=== PATIENT | male | born 1960 | race Caucasian/White ===

== ENCOUNTER 2016-04-05 07:10 | Emergency (ER) | payer MEDICARE ==
[~2016-04-05] VITALS: Ht 180.3 cm; Wt 81.6 kg
[~2016-04-05 07:10] MED LIST: RISP0.2519 PO
[2016-04-05 07:18] VITALS: BP 135/85
[2016-04-05] MEDS ORDERED: LIDOCAINE 2% TOPICAL JELLY 5GM TUBE. TP ONE (07:38)
--- NOTE | 2016-04-05 07:59 | PHYS DOC ---
Past Medical History Past Medical History: Arrhythmia, Bipolar Additional Past Medical Histor: ASPIRATION PNA AFTER SX, SCHIZO-AFFECTIVE DISORDER, FEEDING TUBE Past Surgical History: Pacemaker Additional Past Surgical Histo: G-tube placement, cervical surgery Additional Information: 1 PACK/DAY Alcohol Use: None Drug Use: None Adult General Chief Complaint Chief Complaint: GTUBE REPLACEMENT/MALFUNCTION HPI HPI Patient is a 55 year old male who presents for G-tube replacement after his tube fell out sometime during the night while he was sleeping. The tube was most recently replaced in this emergency department on 11/17/15. The patient had the gastrostomy due to aspiration pneumonia. He denies any abdominal pain. He has mild discomfort at the stoma site. He sees a PCP at [facility]. Review of Systems Review of Systems Constitutional: Denies fever or chills. [] GI: Denies abdominal pain, nausea, vomiting, bloody stools or diarrhea. [] : Denies dysuria, hematuria or urinary frequency. [] Integument: Denies rash or skin lesions. [] Current Medications Current Medications Current Medications Medications (Trade) Dose Ordered Sig/Christina Start Time Stop Time Status Last Admin Dose Admin Lidocaine HCl (Xylocaine 2% Topical 5gm Tube) 5 saima STK-MED ONCE 04/05/16 07:38 04/05/16 07:39 DC Allergies Allergies Allergies Coded Allergies Type Severity Reaction Last Updated Verified Sulfa (Sulfonamide Antibiotics) Allergy Intermediate 11/17/15 Yes Physical Exam Physical Exam Constitutional: Well developed, well nourished, no acute distress, non-toxic appearance. [] HENT: Normocephalic, atraumatic, oropharynx moist. [] Eyes: PERRLA, EOMI, conjunctiva normal, no discharge. [] Neck: Normal range of motion, no tenderness, supple, no stridor. [] Abdomen: Bowel sounds normal, soft, no tenderness, no masses, no pulsatile masses. G-tube stoma in the left upper quadrant with mild discomfort surrounding. Skin: Warm, dry, no erythema, no rash. There is no excoriation, erythema, or induration surrounding the G-tube site. Neurologic: Alert and oriented X 3, normal motor function, normal sensory function, no focal deficits noted. [] Psychologic: Affect normal, judgement normal, mood normal. [] Current Patient Data Vital Signs Vital Signs Date Time Temp Pulse Resp B/P Pulse Ox O2 Delivery O2 Flow Rate FiO2 04/05/16 07:18 98.6 90 18 135/85 96 Room Air 98.6 EKG EKG [] Radiology/Procedures Radiology/Procedures [] Course & Med Decision Making Course & Med Decision Making Pertinent Labs and Imaging studies reviewed. (See chart for details) [] Dragon Disclaimer Dragon Disclaimer This electronic medical record was generated, in whole or in part, using a voice recognition dictation system. Gastrostomy Tube Replacement Indication: previous tube fell out Procedure: The patient was placed in the supine position and the patient's gastric tube was replaced without difficulty. The tube was inserted using lidocaine jelly for local anesthesia. The balloon was inflated using 18cc NS. The placement was verified by aspiration of gastric contents without difficulty or discomfort in the patient. The patient tolerated the procedure well. Complications: none. Departure Departure Impression: Primary Impression: Dislodged gastrostomy tube Disposition: 01 HOME, SELF-CARE Condition: IMPROVED Referrals: NON,STAFF (PCP) Patient Instructions: Gastrostomy Tube, Adult Additional Instructions: Your G-tube was successfully replaced today. Please follow up with your doctor. Return to the emergency department if you have any difficulty with your tube or any new or concerning symptoms. JOLEEN KUMARI Apr 05, 2016 07:59
== END 2016-04-05 08:20 | disposition home or self-care (01) ==
LOC: ER 07:10
DX: Z43.1 Encounter for attention to gastrostomy (principal); F31.9 Bipolar disorder, unspecified; F25.9 Schizoaffective disorder, unspecified; F17.210 Nicotine dependence, cigarettes, uncomplicated; Z96.89 Presence of other specified functional implants; Z88.2 Allergy status to sulfonamides
CPT/HCPCS: 43760; 99284-25

== ENCOUNTER 2017-11-18 09:39 | Emergency (ER) | payer MEDICARE ==
[~2017-11-18] VITALS: Ht 180.3 cm; Wt 102.1 kg
[2017-11-18 10:24] VITALS: BP 147/94
--- NOTE | 2017-11-18 10:40 | PHYS DOC ---
Past Medical History Past Medical History: Arrhythmia, Bipolar Additional Past Medical Histor: ASPIRATION PNA AFTER SX, SCHIZO-AFFECTIVE DISORDER, FEEDING TUBE Past Surgical History: Pacemaker Additional Past Surgical Histo: G-tube placement, cervical surgery Alcohol Use: None Drug Use: None Adult General Chief Complaint Chief Complaint: ELBOW PROBLEM HPI HPI 57-year-old male presents with a swollen red elbow. He states it's just started swelling over the last 24 hours. He denies any injury to the elbow. He denies any other joint pain. He states he's never had bursitis in the past. He can move his arm with minimal pain.[] Review of Systems Review of Systems Constitutional: Denies fever or chills [] Eyes: Denies change in visual acuity, redness, or eye pain [] HENT: Denies nasal congestion or sore throat [] Respiratory: Denies cough or shortness of breath [] Cardiovascular: No additional information not addressed in HPI [] GI: Denies abdominal pain, nausea, vomiting, bloody stools or diarrhea [] : Denies dysuria or hematuria [] Musculoskeletal: Per history of present illness[] Integument: Denies rash or skin lesions [] Neurologic: Denies headache, focal weakness or sensory changes [] Endocrine: Denies polyuria or polydipsia [] All other systems were reviewed and found to be within normal limits, except as documented in this note. Allergies Allergies Allergies Coded Allergies Type Severity Reaction Last Updated Verified Sulfa (Sulfonamide Antibiotics) Allergy Intermediate 11/17/15 Yes Physical Exam Physical Exam Constitutional: Well developed, well nourished, no acute distress, non-toxic appearance. [] HENT: Normocephalic, atraumatic, bilateral external ears normal, oropharynx moist, no oral exudates, nose normal. [] Eyes: PERRLA, EOMI, conjunctiva normal, no discharge. [] Neck: Normal range of motion, no tenderness, supple, no stridor. [] Cardiovascular:Heart rate regular rhythm, no murmur [] Lungs & Thorax: Bilateral breath sounds clear to auscultation [] Abdomen: Bowel sounds normal, soft, no tenderness, no masses, no pulsatile masses. [] Skin: Warm, dry, no erythema, no rash. [] Back: No tenderness, no CVA tenderness. [] Extremities: The right BURSA IS SWOLLEN WITH OVERLYING ERYTHEMA. [] Neurologic: Alert and oriented X 3, normal motor function, normal sensory function, no focal deficits noted. [] Psychologic: Affect normal, judgement normal, mood normal. [] Current Patient Data Vital Signs Vital Signs Date Time Temp Pulse Resp B/P (MAP) Pulse Ox O2 Delivery O2 Flow Rate FiO2 11/18/17 10:24 98.6 87 20 147/94 (111) 99 Room Air 98.6 EKG EKG [] Radiology/Procedures Radiology/Procedures [] Course & Med Decision Making Course & Med Decision Making Pertinent Labs and Imaging studies reviewed. (See chart for details) [] Dragon Disclaimer Dragon Disclaimer This electronic medical record was generated, in whole or in part, using a voice recognition dictation system. Departure Departure Impression: Primary Impression: Olecranon bursitis, right elbow Disposition: 01 HOME, SELF-CARE Condition: STABLE Referrals: UNKNOWN PCP NAME (PCP) Patient Instructions: Olecranon Bursitis Scripts Naproxen (NAPROXEN) 500 Mg Tablet 1 TAB PO BID PRN for PAIN, #30 TAB 1 Refill Prov: MARTINA STYLES DO 11/18/17 Clindamycin Hcl (CLINDAMYCIN HCL) 300 Mg Capsule 1 CAP PO TID for Infection, #30 CAP Prov: MARTINA STYLES DO 11/18/17 MARTINA STYLES DO Nov 18, 2017 10:40
[2017-11-18] MEDS ORDERED: NAPR-514 PO (10:45)
[2017-11-18] MEDS ORDERED: CLIN300C8 PO (10:45)
== END 2017-11-18 10:48 | disposition home or self-care (01) ==
LOC: ER 09:39
DX: M70.21 Olecranon bursitis, right elbow (principal); F31.9 Bipolar disorder, unspecified; Z95.0 Presence of cardiac pacemaker; F25.9 Schizoaffective disorder, unspecified; Z88.2 Allergy status to sulfonamides
CPT/HCPCS: 99283

== ENCOUNTER 2019-01-10 17:32 | Inpatient (IN) | payer MEDICARE ==
[~2019-01-10] VITALS: Ht 177.8 cm; Wt 86.8 kg
[~2019-01-10 17:32] MED LIST changes: +CLIN300C8 PO; +NAPR-514 PO
--- NOTE | 2019-01-10 18:24 | PHYS DOC ---
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 Patient was seen at rehabilitation placement today and complaining of right leg pain and problems with his walking. Patient had weakness of all extremities and slurred speech and was not able to tell for how long he had speech problem. Code stroke was activated at arrival of the patient to ER. Review of Systems Review of Systems Constitutional: Denies fever or chills [] Eyes: Denies change in visual acuity, redness, or eye pain [] HENT: Denies nasal congestion or sore throat [] Respiratory: Denies cough or shortness of breath [] Cardiovascular: No additional information not addressed in HPI [] GI: Denies abdominal pain, nausea, vomiting, bloody stools or diarrhea [] : Denies dysuria or hematuria [] Musculoskeletal: Denies back pain , reports joint pain [] Integument: Denies rash or skin lesions [] Neurologic: Denies headache, focal weakness or sensory changes [] Endocrine: Denies polyuria or polydipsia [] All other systems were reviewed and found to be within normal limits, except as documented in this note. Current Medications Current Medications Current Medications Medications (Trade) Dose Ordered Sig/Christina Start Time Stop Time Status Last Admin Dose Admin Fentanyl Citrate (Fentanyl 2ml Vial) 50 mcg 1X ONCE 01/10/19 20:00 01/10/19 20:01 DC 01/10/19 20:11 50 MCG Info (CONTRAST GIVEN -- Rx MONITORING) 1 each PRN DAILY PRN 01/10/19 20:00 01/12/19 19:59 Iohexol (Omnipaque 350 Mg/ml) 75 ml 1X ONCE 01/10/19 20:00 01/10/19 20:01 DC 01/10/19 20:11 75 ML Allergies Allergies Allergies Coded Allergies Type Severity Reaction Last Updated Verified Sulfa (Sulfonamide Antibiotics) Allergy Intermediate 11/17/15 Yes haloperidol Allergy Intermediate Unknown 01/10/19 Yes Physical Exam Physical Exam Constitutional: Well nourished, mild distress, non-toxic appearance. [] HENT: Normocephalic, atraumatic, bilateral external ears normal, oropharynx moist, no oral exudates, nose normal. [] Eyes: PERRLA, EOMI, conjunctiva normal, no discharge. [] Neck: Normal range of motion, no tenderness, supple, no stridor. [] Cardiovascular:Heart rate regular rhythm, no murmur [] Lungs & Thorax: Bilateral breath sounds clear to auscultation [] Abdomen: Bowel sounds normal, soft, no tenderness, no masses, no pulsatile masses. [] Skin: Warm, dry, no erythema, no rash. [] Back: No tenderness, no CVA tenderness. [] Extremities: No tenderness, no cyanosis, no clubbing, ROM intact, no edema. [] Neurologic: Alert and oriented X 2, normal motor function, normal sensory function, no focal deficits noted, NIHS of 4. [] Psychologic: Affect anxious, judgement normal, mood normal. [] Current Patient Data Vital Signs Vital Signs Date Time Temp Pulse Resp B/P (MAP) Pulse Ox O2 Delivery O2 Flow Rate FiO2 01/10/19 20:08 65 16 97 01/10/19 17:38 98.4 149/92 (111) Room Air 98.4 Lab Values Laboratory Tests Test 01/10/19 18:05 01/10/19 18:08 01/10/19 18:39 White Blood Count 8.6 x10^3/uL (4.0-11.0) Red Blood Count 4.46 x10^6/uL (4.30-5.70) Hemoglobin 15.5 g/dL (13.0-17.5) Hematocrit 44.5 % (39.0-53.0) Mean Corpuscular Volume 100 fL (79-100) Mean Corpuscular Hemoglobin 35 pg (25-35) Mean Corpuscular Hemoglobin Concent 35 g/dL (31-37) Red Cell Distribution Width 14.7 % (11.5-14.5) H Platelet Count 253 x10^3/uL (140-400) Neutrophils (%) (Auto) 76 % (31-73) H Lymphocytes (%) (Auto) 16 % (24-48) L Monocytes (%) (Auto) 7 % (0-9) Eosinophils (%) (Auto) 1 % (0-3) Basophils (%) (Auto) 0 % (0-3) Neutrophils # (Auto) 6.6 x10^3/uL (1.8-7.7) Lymphocytes # (Auto) 1.4 x10^3/uL (1.0-4.8) Monocytes # (Auto) 0.6 x10^3/uL (0.0-1.1) Eosinophils # (Auto) 0.0 x10^3/uL (0.0-0.7) Basophils # (Auto) 0.0 x10^3/uL (0.0-0.2) Prothrombin Time 12.4 SEC (11.7-14.0) Prothrombin Time INR 1.0 (0.8-1.1) Activated Partial Thromboplast Time 29 SEC (24-38) Sodium Level 142 mmol/L (136-145) Potassium Level 4.1 mmol/L (3.5-5.1) Chloride Level 102 mmol/L (98-107) Carbon Dioxide Level 31 mmol/L (21-32) Anion Gap 9 (6-14) Blood Urea Nitrogen 12 mg/dL (8-26) Creatinine 1.1 mg/dL (0.7-1.3) Estimated GFR (Cockcroft-Gault) 68.3 BUN/Creatinine Ratio 11 (6-20) Glucose Level 95 mg/dL (70-99) Lactic Acid Level 1.9 mmol/L (0.4-2.0) Calcium Level 8.6 mg/dL (8.5-10.1) Total Bilirubin 0.3 mg/dL (0.2-1.0) Aspartate Amino Transferase (AST) 16 U/L (15-37) Alanine Aminotransferase (ALT) 13 U/L (16-63) L Alkaline Phosphatase 99 U/L (46-116) Creatine Kinase 78 U/L (39-308) Troponin I Quantitative < 0.017 ng/mL (0.000-0.055) Total Protein 7.7 g/dL (6.4-8.2) Albumin 3.4 g/dL (3.4-5.0) Albumin/Globulin Ratio 0.8 (1.0-1.7) L Glucose (Fingerstick) 96 mg/dL (70-99) Urine Color Yellow Urine Clarity Clear Urine pH 7.5 Urine Specific [place] 1.010 Urine Protein Negative mg/dL (NEG-TRACE) Urine Glucose (UA) Negative mg/dL (NEG) Urine Ketones (Stick) Negative mg/dL (NEG) Urine Blood Negative (NEG) Urine Nitrite Negative (NEG) Urine Bilirubin Negative (NEG) Urine Urobilinogen Dipstick 1.0 mg/dL (0.2 mg/dL) Urine Leukocyte Esterase Negative (NEG) Urine RBC 0 /HPF (0-2) Urine WBC Occ /HPF (0-4) Urine Squamous Epithelial Cells Occ /LPF Urine Bacteria 0 /HPF (0-FEW) Urine Opiates Screen Neg (NEG) Urine Methadone Screen Neg (NEG) Urine Barbiturates Neg (NEG) Urine Phencyclidine Screen Neg (NEG) Urine Amphetamine/Methamphetamine Neg (NEG) Urine Benzodiazepines Screen Neg (NEG) Urine Cocaine Screen Neg (NEG) Urine Cannabinoids Screen Neg (NEG) Urine Ethyl Alcohol Neg (NEG) Laboratory Tests 01/10/19 18:05 Laboratory Tests 01/10/19 18:05 EKG EKG EKG interpreted by me. EKG at 1850 showed normal sinus rhythm at rate of 61, left fourth axis, normal [place] and QT intervals, no acute ST and T-wave elevation. Radiology/Procedures Radiology/Procedures [facility] [address] [place] [address] [id number] [place] [address] IMAGING REPORT Signed PATIENT: BHAVANA CRISOSTOMO AACCOUNT: [id number] : 1960 LOCATION: ER AGE: 58 SEX: M EXAM STATUS: PRE ER ORD. PHYSICIAN: AIMEE JACKSON MD REASON: SLURRED SPEECH, DECREASED MOTOR TODAY. PROCEDURE: CT CODE STROKE HEAD WO Examination: CT CODE STROKE HEAD WO History: Slurred speech, decreased motor activity Comparison/Correlation: None Findings: Axial images of the head were obtained without contrast. Mild atrophy is present. No intracranial hemorrhage, midline shift, or mass effect. Left external capsular lacunar infarct of indeterminate age is noted. No evidence of evolving infarct. Opacification of the right external auditory canal is noted. Impression: No intracranial hemorrhage. No conclusive finding of evolving infarct. Discussed with the referring emergency room physician on 01/10/2019 at 6:25 PM. RS Compliance Statement: One or more of the following individualized dose reduction techniques were utilized for this examination: 1. Automated exposure control 2. Adjustment of the mA and/or kV according to patient size 3. Use of iterative reconstruction technique Electronically signed by: Mando Bauer MD (01/10/2019 6:26 PM) [facility] DICTATED and SIGNED BY: MANDO BAUER MD DATE: 01/10/191825 IMAGING REPORT Signed PATIENT: BHAVANA CRISOSTOMO AACCOUNT: [id number] : 1960 LOCATION: [address] [place] [address] AGE: 58 SEX: M EXAM STATUS: ADM IN ORD. PHYSICIAN: AIMEE JACKSON MD REASON: weakness PROCEDURE: PORTABLE CHEST 1V Single view chest dated 01/10/2019. No comparison available. Clinical data indication: Weakness. FINDINGS: Single upright portable exam performed. Heart and mediastinal contours within normal limits. Dual lead left subclavian pacer in place. Lungs are somewhat hyperinflated but otherwise clear. No consolidation or pleural effusion. No pneumothorax. Patchy and linear opacities at both lung bases, likely scar or atelectasis. IMPRESSION: 1. No acute abnormality of chest. 2. Patchy and linear opacities at both lung bases, likely scar or atelectasis. Electronically signed by: Jayme Skinner MD (01/10/2019 8:49 PM) [facility] DICTATED and SIGNED BY: JAYME SKINNER MD DATE: 01/10/192048 [][facility] [address] [place], [place] [id number] IMAGING REPORT Signed PATIENT: BHAVANA CRISOSTOMO AACCOUNT: [id number] : 1960 LOCATION: [address] [place] [address] AGE: 58 SEX: M EXAM STATUS: ADM IN ORD. PHYSICIAN: AIMEE JACKSON MD REASON: slurred speech PROCEDURE: CT ANGIOGRAPHY HEAD AND NECK CTA head and neck with contrast dated 01/10/2019. No comparison available. CLINICAL INDICATION: Slurred speech. Possible stroke. TECHNIQUE: Per contiguous axial imaging of the head and neck performed following the intravenous administration of 75 cc Omnipaque 350. Study was performed as dedicated CTA with thin cut coronal and sagittal reconstructions and curved reformatted reconstructions. One or more of the following individualized dose reduction techniques were utilized for this examination: 1. Automated exposure control 2. Adjustment of the mA and/or kV according to patient size 3. Use of iterative reconstruction technique. Carotid Stenosis calculations for CT, MR, and conventional angiography are based upon measurements of the distal ICA diameter in accordance with the NASCET methodology. Stenosis calculations for carotid ultrasound studies are derived from validated velocity criteria which are known to correlate with the NASCET methodology. FINDINGS: Contrast bolus is adequate. Aortic arch is normal in caliber. There is bovine origin of the left common carotid. The bilateral subclavian arteries are patent. Right vertebral artery origin is patent. The left vertebral artery origin is not well visualized due to beam hardening artifact from dense contrast material in the adjacent vein. The mid to distal vertebral arteries are patent to the skull base. No intimal flap or focal stenosis. Intradural vertebral arteries are patent. Basilar artery is well formed. Bilateral [employer] are patent. Left common carotid artery origin is not well evaluated due to beam Rojas artifact from dense contrast material in the adjacent vein. There is calcific plaque at the left carotid bifurcation resulting in minimal luminal narrowing of the proximal left ICA. The left ICA is otherwise patent to the skull base. The right common carotid artery origin is also limited in evaluation. The CCA is otherwise patent. There is minimal calcific plaque at the right carotid bifurcation resulting in no significant ICA stenosis. The right ICA is otherwise patent to the skull base. There is mild calcific plaque at the bilateral cavernous internal carotid arteries, without significant stenosis. The MORTEZA and MCA branches are symmetric. Patent anterior communicating artery. There is no apparent proximal branch vessel occlusion. No evidence for aneurysm. Postcontrast imaging of the brain shows no abnormal enhancement. The dural venous sinuses are grossly patent. Paranasal sinuses and mastoid air cells are clear. No significant soft tissue abnormality. Images of lung apices show mild to moderate emphysema and biapical scarring. IMPRESSION: 1. No evidence of hemodynamically significant stenosis or aneurysm. 2. Limited evaluation of the origin of the bilateral common carotid artery and left vertebral artery due to artifact. 3. Mild calcific plaquing of the bilateral carotid bifurcation and bilateral cavernous ICA with no evidence of hemodynamically significant stenosis. Electronically signed by: Jayme Skinner MD (01/10/2019 8:48 PM) [facility] DICTATED and SIGNED BY: JAYME SKINNER MD DATE: 01/10/192047 Course & Med Decision Making Course & Med Decision Making Pertinent Labs and Imaging studies reviewed. (See chart for details) Evaluation of patient in ER showed 74-year-old male patient presented with generalized weakness. Code stroke castrated Tylenol level patient because of assisted to speech but patient was not a candidate for TPA because of chronic slurred speech reported by his family member and no focal neuro deficit.Patient requiring admission for further evaluation and treatment. Discussed with Dr. Live who is in agreement with admission. Discussed findings and plan with patient and family, who acknowledge understanding and agreement. Dragon Disclaimer Dragon Disclaimer This electronic medical record was generated, in whole or in part, using a voice recognition dictation system. Departure Departure Impression: Primary Impression: Neurological deficit present Disposition: 09 ADMITTED INPATIENT (at 2136) Condition: IMPROVED Referrals: UNKNOWN PCP NAME (PCP) NIHSS Stroke Scale NIH Stroke Scale: NIH Stroke Scale Response (Comments) Value Level of Consciousness: 0 Alert/Responsive 0 LOC Questions: 0 Answers both correctly 0 LOC Commands: 0 Performs both tasks 0 Best Gaze: 0 Normal 0 Visual: 0 No visual loss 0 Facial Palsy: 0 Normal, symmetrical 0 Motor - Left Arm 0 No drift 0 Motor - Right Arm 0 No drift 0 Motor - Left Leg 0 No drift 0 Motor: Right Leg 0 No drift 0 Limb Ataxia: 2 Two limbs 2 Sensory: 0 No loss 0 Best Language: 1 Mild to mod aphasia 1 Dysathria: 1 Mild to moderate 1 Extinction and Inattention: 0 Normal 0 Total 4 Critical Care Time Critical care time was 65 minutes exclusive of procedures. AIMEE JACKSON MD Jan 10, 2019 18:24
--- NOTE | 2019-01-10 18:28 | RAD ---
Examination: CT CODE STROKE HEAD WO History: Slurred speech, decreased motor activity Comparison/Correlation: None Findings: Axial images of the head were obtained without contrast. Mild atrophy is present. No intracranial hemorrhage, midline shift, or mass effect. Left external capsular lacunar infarct of indeterminate age is noted. No evidence of evolving infarct. Opacification of the right external auditory canal is noted. Impression: No intracranial hemorrhage. No conclusive finding of evolving infarct. Discussed with the referring emergency room physician on 01/10/2019 at 6:25 PM. PQRS Compliance Statement: One or more of the following individualized dose reduction techniques were utilized for this examination: 1. Automated exposure control 2. Adjustment of the mA and/or kV according to patient size 3. Use of iterative reconstruction technique Electronically signed by: Mando Goff MD (01/10/2019 6:26 PM) [facility]
[2019-01-10 18:33] LABS: BASO % 0 % (0-3); EOS % 1 % (0-3); HEMATOCRIT 44.5 % (39.0-53.0); HEMOGLOBIN 15.5 g/dL (13.0-17.5); LYMPH # 1.4 x10^3/uL (1.0-4.8); LYMPH % 16 % (24-48); MEAN CORPUSCULAR HEMOGLOBIN 35 pg (25-35); MEAN CORPUSCULAR HGB CONC 35 g/dL (31-37); MEAN CORPUSCULAR VOLUME 100 fL (79-100); MONO # 0.6 x10^3/uL (0.0-1.1); MONO % 7 % (0-9); NEUT # 6.6 x10^3/uL (1.8-7.7); NEUT % 76 % (31-73); PLATELET COUNT 253 x10^3/uL (140-400); RED BLOOD COUNT 4.46 x10^6/uL (4.30-5.70); RED CELL DISTRIBUTION WIDTH 14.7 % (11.5-14.5); WHITE BLOOD COUNT 8.6 x10^3/uL (4.0-11.0)
[2019-01-10 18:41] LABS: CALCIUM 8.6 mg/dL (8.5-10.1); CREATININE 1.1 mg/dL (0.7-1.3); GFR 68.3; POTASSIUM 4.1 mmol/L (3.5-5.1)
[2019-01-10 18:47] LABS: ALBUMIN 3.4 g/dL (3.4-5.0); ALBUMIN/GLOBULIN RATIO 0.8 (1.0-1.7); PROTHROMBIN TIME PATIENT 12.4 SEC (11.7-14.0); TOTAL BILIRUBIN 0.3 mg/dL (0.2-1.0); TOTAL PROTEIN 7.7 g/dL (6.4-8.2)
[2019-01-10 18:49] LABS: BILIRUBIN,URINE NEGATIVE (NEG); CLARITY,URINE CLEAR; COLOR,URINE YELLOW; NITRITE,URINE NEGATIVE (NEG); PH,URINE 7.5; PROTEIN,URINE NEGATIVE (NEG-TRACE)
[2019-01-10 18:57] LABS: BACTERIA,URINE 0 /HPF (0-FEW); RBC,URINE 0 /HPF (0-2); SQUAMOUS EPITHELIAL CELL,UR OCC /LPF; WBC,URINE OCC /HPF (0-4)
[2019-01-10 19:07] LABS: BARBITURATES NEG (NEG); BENZODIAZEPINES NEG (NEG); CANNABINOIDS NEG (NEG); COCAINE NEG (NEG); METHADONE NEG (NEG); OPIATES NEG (NEG); PHENCYCLIDINE NEG (NEG)
[2019-01-10 19:08] LABS: AMPHETAMINE/METHAMPHETAMINE NEG (NEG)
[2019-01-10] MEDS ORDERED: fentaNYL PF VIAL 100 MCG/2 ML VIAL IVP ONE (20:00)
[2019-01-10] MEDS ORDERED: IOHEXOL 350 MG/ML 100 ML VIAL. IV ONE (20:00)
[2019-01-10] MEDS ORDERED: CONTRAST GIVEN. MC PRN (20:00)
--- NOTE | 2019-01-10 20:51 | RAD ---
CTA head and neck with contrast dated 01/10/2019. No comparison available. CLINICAL INDICATION: Slurred speech. Possible stroke. TECHNIQUE: Per contiguous axial imaging of the head and neck performed following the intravenous administration of 75 cc Omnipaque 350. Study was performed as dedicated CTA with thin cut coronal and sagittal reconstructions and curved reformatted reconstructions. One or more of the following individualized dose reduction techniques were utilized for this examination: 1. Automated exposure control 2. Adjustment of the mA and/or kV according to patient size 3. Use of iterative reconstruction technique. Carotid Stenosis calculations for CT, MR, and conventional angiography are based upon measurements of the distal ICA diameter in accordance with the NASCET methodology. Stenosis calculations for carotid ultrasound studies are derived from validated velocity criteria which are known to correlate with the NASCET methodology. FINDINGS: Contrast bolus is adequate. Aortic arch is normal in caliber. There is bovine origin of the left common carotid. The bilateral subclavian arteries are patent. Right vertebral artery origin is patent. The left vertebral artery origin is not well visualized due to beam hardening artifact from dense contrast material in the adjacent vein. The mid to distal vertebral arteries are patent to the skull base. No intimal flap or focal stenosis. Intradural vertebral arteries are patent. Basilar artery is well formed. Bilateral FASHION MODEL are patent. Left common carotid artery origin is not well evaluated due to beam Rojas artifact from dense contrast material in the adjacent vein. There is calcific plaque at the left carotid bifurcation resulting in minimal luminal narrowing of the proximal left ICA. The left ICA is otherwise patent to the skull base. The right common carotid artery origin is also limited in evaluation. The CCA is otherwise patent. There is minimal calcific plaque at the right carotid bifurcation resulting in no significant ICA stenosis. The right ICA is otherwise patent to the skull base. There is mild calcific plaque at the bilateral cavernous internal carotid arteries, without significant stenosis. The MORTEZA and MCA branches are symmetric. Patent anterior communicating artery. There is no apparent proximal branch vessel occlusion. No evidence for aneurysm. Postcontrast imaging of the brain shows no abnormal enhancement. The dural venous sinuses are grossly patent. Paranasal sinuses and mastoid air cells are clear. No significant soft tissue abnormality. Images of lung apices show mild to moderate emphysema and biapical scarring. IMPRESSION: 1. No evidence of hemodynamically significant stenosis or aneurysm. 2. Limited evaluation of the origin of the bilateral common carotid artery and left vertebral artery due to artifact. 3. Mild calcific plaquing of the bilateral carotid bifurcation and bilateral cavernous ICA with no evidence of hemodynamically significant stenosis. Electronically signed by: Jayme Skinner MD (01/10/2019 8:48 PM) [facility]
--- NOTE | 2019-01-10 20:52 | RAD ---
Single view chest dated 01/10/2019. No comparison available. Clinical data indication: Weakness. FINDINGS: Single upright portable exam performed. Heart and mediastinal contours within normal limits. Dual lead left subclavian pacer in place. Lungs are somewhat hyperinflated but otherwise clear. No consolidation or pleural effusion. No pneumothorax. Patchy and linear opacities at both lung bases, likely scar or atelectasis. IMPRESSION: 1. No acute abnormality of chest. 2. Patchy and linear opacities at both lung bases, likely scar or atelectasis. Electronically signed by: Jayme Skinner MD (01/10/2019 8:49 PM) [facility]
[2019-01-10 21:40] VITALS: BP 160/89
[2019-01-10] MEDS ORDERED: DULO60CA6 PEG (22:19)
[2019-01-10] MEDS ORDERED: LAMO200T6 PEG (22:19)
[2019-01-10] MEDS ORDERED: ASEN10TA9 SL (22:19)
[2019-01-10] MEDS ORDERED: PANT40GR PEG (22:19)
[2019-01-10] MEDS ORDERED: BENZ1TAB5 PEG (23:07)
[2019-01-10] MEDS ORDERED: GABA600T7 PEG (23:07)
[2019-01-10 23:10] VITALS: BP 151/93
[2019-01-10] MEDS: oxyCODONE/APAP 5/325 1 TAB TABLET PEG PRN (23:23)
--- NOTE | 2019-01-11 01:22 | NUR ---
Patient arrived from ER at 2130 by bed. NIH done with Yuriy RN at bedside and patient scored a 15 and notified Calos of the results and continue to monitor. Medications verified with Dr. Live and restarted. Patient had a G-tube that was placed recently at and 20g and used a Enternal funnel Enfit for medication administration. Patient takes bolus Iso source 1.5 florence QID. Nutrition consult ordered.
[2019-01-11 03:00] VITALS: BP 132/76
[2019-01-11] MEDS: oxyCODONE/APAP 5/325 1 TAB TABLET PEG PRN ×2 (03:15→07:55)
[2019-01-11 04:45] LABS: BASO % 0 % (0-3); EOS # 0.1 x10^3/uL (0.0-0.7); EOS % 2 % (0-3); HEMATOCRIT 42.5 % (39.0-53.0); HEMOGLOBIN 14.8 g/dL (13.0-17.5); LYMPH # 2.7 x10^3/uL (1.0-4.8); LYMPH % 35 % (24-48); MEAN CORPUSCULAR HEMOGLOBIN 35 pg (25-35); MEAN CORPUSCULAR HGB CONC 35 g/dL (31-37); MEAN CORPUSCULAR VOLUME 100 fL (79-100); MONO # 0.6 x10^3/uL (0.0-1.1); MONO % 8 % (0-9); NEUT # 4.3 x10^3/uL (1.8-7.7); NEUT % 55 % (31-73); PLATELET COUNT 236 x10^3/uL (140-400); RED BLOOD COUNT 4.26 x10^6/uL (4.30-5.70); RED CELL DISTRIBUTION WIDTH 14.5 % (11.5-14.5); WHITE BLOOD COUNT 7.7 x10^3/uL (4.0-11.0)
[2019-01-11 04:58] LABS: CALCIUM 8.5 mg/dL (8.5-10.1); CREATININE 0.9 mg/dL (0.7-1.3); GFR 86.1; POTASSIUM 3.7 mmol/L (3.5-5.1)
[2019-01-11 07:00] VITALS: BP 133/79
--- NOTE | 2019-01-11 07:27 | EKG ---
[facility] [address] [place] [address] Test Date: 2019-01-10 Test Time: 18:50:28 Pat Name: BHAVANA CRISOSTOMO Department: Room: Gender: M Museum Docent: : 1960 Requested By: AIMEE JACKSON Order Number: [id number] Reading MD: Measurements Intervals [place] Rate: 60 P: 40 SD: 150 QRS: -23 QRSD: 82 T: 38 QT: 408 QTc: 412 Interpretive Statements SINUS RHYTHM LEFTWARD AXIS QRS(T) CONTOUR ABNORMALITY CONSISTENT WITH ANTEROSEPTAL INFARCT PROBABLY OLD ABNORMAL ECG No previous ECG available for comparison
[2019-01-11] MEDS ORDERED: PANTOPRAZOLE 40 MG TABLET.DR. PO SCH (07:30)
[2019-01-11] MEDS ORDERED: lamoTRIgine 100 MG TABLET. PEG SCH (09:00)
[2019-01-11] MEDS ORDERED: DULoxetine HCL 30 MG CAPSULE.DR PO SCH (09:00)
[2019-01-11 11:00] VITALS: BP 121/71
--- NOTE | 2019-01-11 13:07 | NUR ---
SS following for discharge planning. SS reviewed pt chart. Pt is from home and is currently on room air. No discharge needs noted at this time. SS will continue to follow for discharge planning.
--- NOTE | 2019-01-11 13:36 | PDOC2 ---
NEUROLOGY CONSULT Date of Admission Date of Admission DATE: 01/11/19 TIME: 13:20 Reason for Consult Reason for Consult: IMPRESSION: Generalized weakness on 01/10/19, resolved. HTN. Smoking. Bipolar disorder. RECOMMENDATIONS/PLAN: CT and CTA performed. ASA 325 mg daily. Smoking cessation. FU with PCP. HISTORY OF THE PRESENT ILLNESS: This is a 58-year-old male patient with history of bipolar disorder and epiglottis injury during cervical discotomy with PEG tube placement who was brought by EMS to the ER of [facility] with complaints of generalized weakness, LE > UE on 01/10/19. Patient was seen at rehabilitation placement today and complaining of right leg pain and problems with his walking, then stated to have weakness of all extremities and slurred speech and was not able to tell for how long he had speech problem. Code stroke was activated at arrival of the patient to ER. His HCT and CTA were no acute abnormalities. His speech problem and weakness resolved. PAST MEDICAL HISTORY: Arrhythmia, Bipolar, ASPIRATION PNA AFTER SX, SCHIZO-AFFECTIVE DISORDER, FEEDING TUBE PAST SURGERY HISTORY: Pacemaker Placement G-tube placement, cervical spine surgery. Allergies Coded Allergies Type Severity Reaction Last Updated Verified Sulfa (Sulfonamide Antibiotics) Allergy Intermediate 11/17/15 Yes haloperidol Allergy Intermediate Unknown 01/10/19 Yes MEDICATIONS: Refer to [facility] FAMILY HISTORY: Non contributory. SOCIAL HISTORY: Lives with friend. Denies illicit drug use. He smokes 1 pack of cigarettes a day for about 50 years. He drinks alcohol occasionally. REVIEW OF SYSTEMS: Constitutional: No malnutrition, cachexia. Head: No recent traumatic brain or head injury. Skin: No edema, or rash. Ear: No infection. Eyes: No vision loss or color blindness. Nose: No bleeding or purulent discharges. Hearing: No hearing decrease. Neck: No injury. Cardiac: HTN. Pulmonary: Longstanding smoking.. GI: epiglottis.. Urinary/genital: No dysuria, incontinence, urinary retention. Endocrinologic: No cousin face, craniofacial dysmorphism, polydactyly. Skeletomuscular: NGeneralized weakness. Neurological: see HP. Psychiatric: Denies drug use/abuse. Otherwise, not [id number] review of systems. PHYSICAL EXAMINATION: General appearance is in no acute distress. HEENT: Normocephalic and nontraumatic. Eyes, nose, ears, and throat are unremarkable. Neck is supple. No lymphadenopathy. No crepitus. Cardiovascular: S1, S2, regular rate and rhythm. Pulmonary: Clear to auscultation bilaterally. Abdomen: Bowel sounds are positive. Abdomen is soft, nontender, and nondistended. Extremities: No rash, lesions, or edema. No restriction of range of motion NEUROLOGICAL EXAMINATION: Alert Oriented to time, place and person. PERRL. EOMI. CN: no focal findings. Muscle tone: within normal. Muscle strength: 5 DTR: 2 Plantar reflex: Flexor response bilaterally Gait: At baseline normal. Sensory exam: no abnormal findings. No cerebellar signs elicited. F-T-N test fine. Current Medications Current Medications Current Medications Iohexol (Omnipaque 350 Mg/ml) 75 ml 1X ONCE IV Last administered on 01/10/19 20:11; Start 01/10/19 at 20:00; Stop 01/10/19 at 20:01; Status DC Fentanyl Citrate (Fentanyl 2ml Vial) 50 mcg 1X ONCE IVP Last administered on 01/10/19at 20:11; Start 01/10/19 at 20:00; Stop 01/10/19 at 20:01; Status DC Info (CONTRAST GIVEN -- Rx MONITORING) 1 each PRN DAILY PRN MC SEE COMMENTS; Start 01/10/19 at 20:00; Stop 01/12/19 at 19:59 Non-Formulary Medication (Asenapine Maleate (Saphris)) 1 tab QHS SL ; Start 1 03/13/18 at 21:00; Status UNV Duloxetine HCl (Cymbalta) 60 mg DAILY PO Last administered on 01/11/19at 07:55; Start 01/11/19 at 09:00 Lamotrigine (LaMICtal) 200 mg BID PEG Last administered on 01/11/19 07:55; Start 01/11/19 at 09:00 Pantoprazole Sodium (Protonix) 40 mg DAILYAC PO Last administered on 01/11/19at 07:55; Start 01/11/19 at 07:30 Oxycodone/ Acetaminophen (Percocet 5/325) 1 tab PRN Q4HRS PRN PEG PAIN Last administered on 01/11/19at 07:55; Start 01/10/19 at 23:15 Active Scripts Active Reported Gabapentin 600 Mg Tablet 600 Mg PEG TID Benztropine Mesylate 1 Mg Tablet 1 Tab PEG BID Saphris (Asenapine Maleate) 10 Mg Tab.subl 1 Tab SL QHS Lamotrigine 200 Mg Tablet 1 Tab PEG BID Cymbalta (Duloxetine Hcl) 60 Mg Capsule. 1 Cap PEG DAILY Protonix Packet (Pantoprazole Sodium) 40 Mg Granpkt. 40 Mg PEG DAILY Allergies Allergies: Allergies Coded Allergies Type Severity Reaction Last Updated Verified Sulfa (Sulfonamide Antibiotics) Allergy Intermediate 11/17/15 Yes haloperidol Allergy Intermediate Unknown 01/10/19 Yes ROS Review of System The patient denies any associated fevers, chills, headache, ear pain, rhinorrhea, sore throat, stiff neck, productive cough, chest pain, shortness of breath, back or flank pain, abdominal pain, nausea, vomiting, diarrhea, constipation, dysuria, rash, numbness, weakness, tingling, incontinence, difficulty ambulating, or diaphoresis. Physical Exam Physical Exam General: Well developed, well nourished, no acute distress, well appearing HEENT: Pupils equally round and reactive to light, EOMI, no discharge, normal conjunctiva Neck: Supple, no nuchal rigidity, no JVD, trachea midline, no tenderness Cardiac: RRR, no murmurs, no gallops, no rubs Chest/Lungs: CTAB, no wheeze, no rhonchi, no crackles Abdomen: soft, non-distended, no guarding, no peritoneal signs, non-tender Back: No tenderness Extremities: no edema, pulses intact, non-tender,capillary refill <3 sec bilateral upper and lower extremities, Neuro: Alert and oriented x 4, no focal deficits, normal speech Vitals Vitals: Vital Signs Date Time Temp Pulse Resp B/P (MAP) Pulse Ox O2 Delivery O2 Flow Rate FiO2 01/11/19 11:00 98.3 60 18 121/71 (88) 91 Room Air 98.3 Labs Labs Laboratory Tests Test 01/10/19 18:05 01/10/19 18:08 01/10/19 18:39 01/11/19 03:30 White Blood Count 8.6 x10^3/uL (4.0-11.0) 7.7 x10^3/uL (4.0-11.0) Red Blood Count 4.46 x10^6/uL (4.30-5.70) 4.26 x10^6/uL (4.30-5.70) Hemoglobin 15.5 g/dL (13.0-17.5) 14.8 g/dL (13.0-17.5) Hematocrit 44.5 % (39.0-53.0) 42.5 % (39.0-53.0) Mean Corpuscular Volume 100 fL (79-100) 100 fL (79-100) Mean Corpuscular Hemoglobin 35 pg (25-35) 35 pg (25-35) Mean Corpuscular Hemoglobin Concent 35 g/dL (31-37) 35 g/dL (31-37) Red Cell Distribution Width 14.7 % (11.5-14.5) 14.5 % (11.5-14.5) Platelet Count 253 x10^3/uL (140-400) 236 x10^3/uL (140-400) Neutrophils (%) (Auto) 76 % (31-73) 55 % (31-73) Lymphocytes (%) (Auto) 16 % (24-48) 35 % (24-48) Monocytes (%) (Auto) 7 % (0-9) 8 % (0-9) Eosinophils (%) (Auto) 1 % (0-3) 2 % (0-3) Basophils (%) (Auto) 0 % (0-3) 0 % (0-3) Neutrophils # (Auto) 6.6 x10^3/uL (1.8-7.7) 4.3 x10^3/uL (1.8-7.7) Lymphocytes # (Auto) 1.4 x10^3/uL (1.0-4.8) 2.7 x10^3/uL (1.0-4.8) Monocytes # (Auto) 0.6 x10^3/uL (0.0-1.1) 0.6 x10^3/uL (0.0-1.1) Eosinophils # (Auto) 0.0 x10^3/uL (0.0-0.7) 0.1 x10^3/uL (0.0-0.7) Basophils # (Auto) 0.0 x10^3/uL (0.0-0.2) 0.0 x10^3/uL (0.0-0.2) Prothrombin Time 12.4 SEC (11.7-14.0) Prothromb Time International Ratio 1.0 (0.8-1.1) Activated Partial Thromboplast Time 29 SEC (24-38) Sodium Level 142 mmol/L (136-145) 147 mmol/L (136-145) Potassium Level 4.1 mmol/L (3.5-5.1) 3.7 mmol/L (3.5-5.1) Chloride Level 102 mmol/L (98-107) 108 mmol/L (98-107) Carbon Dioxide Level 31 mmol/L (21-32) 28 mmol/L (21-32) Anion Gap 9 (6-14) 11 (6-14) Blood Urea Nitrogen 12 mg/dL (8-26) 9 mg/dL (8-26) Creatinine 1.1 mg/dL (0.7-1.3) 0.9 mg/dL (0.7-1.3) Estimated GFR (Cockcroft-Gault) 68.3 86.1 BUN/Creatinine Ratio 11 (6-20) Glucose Level 95 mg/dL (70-99) 75 mg/dL (70-99) Lactic Acid Level 1.9 mmol/L (0.4-2.0) Calcium Level 8.6 mg/dL (8.5-10.1) 8.5 mg/dL (8.5-10.1) Total Bilirubin 0.3 mg/dL (0.2-1.0) Aspartate Amino Transf (AST/SGOT) 16 U/L (15-37) Alanine Aminotransferase (ALT/SGPT) 13 U/L (16-63) Alkaline Phosphatase 99 U/L (46-116) Creatine Kinase 78 U/L (39-308) Troponin I Quantitative < 0.017 ng/mL (0.000-0.055) Total Protein 7.7 g/dL (6.4-8.2) Albumin 3.4 g/dL (3.4-5.0) Albumin/Globulin Ratio 0.8 (1.0-1.7) Glucose (Fingerstick) 96 mg/dL (70-99) Urine Color Yellow Urine Clarity Clear Urine pH 7.5 Urine Specific [place] 1.010 Urine Protein Negative mg/dL (NEG-TRACE) Urine Glucose (UA) Negative mg/dL (NEG) Urine Ketones (Stick) Negative mg/dL (NEG) Urine Blood Negative (NEG) Urine Nitrite Negative (NEG) Urine Bilirubin Negative (NEG) Urine Urobilinogen Dipstick 1.0 mg/dL (0.2 mg/dL) Urine Leukocyte Esterase Negative (NEG) Urine RBC 0 /HPF (0-2) Urine WBC Occ /HPF (0-4) Urine Squamous Epithelial Cells Occ /LPF Urine Bacteria 0 /HPF (0-FEW) Urine Opiates Screen Neg (NEG) Urine Methadone Screen Neg (NEG) Urine Barbiturates Neg (NEG) Urine Phencyclidine Screen Neg (NEG) Urine Amphetamine/Methamphetamine Neg (NEG) Urine Benzodiazepines Screen Neg (NEG) Urine Cocaine Screen Neg (NEG) Urine Cannabinoids Screen Neg (NEG) Urine Ethyl Alcohol Neg (NEG) Vitamin B12 Level 620 pg/mL (247-911) Thyroid Stimulating Hormone (TSH) 1.202 uIU/mL (0.358-3.74) Laboratory Tests Test 01/10/19 18:05 01/10/19 18:08 01/10/19 18:39 01/11/19 03:30 White Blood Count 8.6 x10^3/uL (4.0-11.0) 7.7 x10^3/uL (4.0-11.0) Red Blood Count 4.46 x10^6/uL (4.30-5.70) 4.26 x10^6/uL (4.30-5.70) Hemoglobin 15.5 g/dL (13.0-17.5) 14.8 g/dL (13.0-17.5) Hematocrit 44.5 % (39.0-53.0) 42.5 % (39.0-53.0) Mean Corpuscular Volume 100 fL (79-100) 100 fL (79-100) Mean Corpuscular Hemoglobin 35 pg (25-35) 35 pg (25-35) Mean Corpuscular Hemoglobin Concent 35 g/dL (31-37) 35 g/dL (31-37) Red Cell Distribution Width 14.7 % (11.5-14.5) 14.5 % (11.5-14.5) Platelet Count 253 x10^3/uL (140-400) 236 x10^3/uL (140-400) Neutrophils (%) (Auto) 76 % (31-73) 55 % (31-73) Lymphocytes (%) (Auto) 16 % (24-48) 35 % (24-48) Monocytes (%) (Auto) 7 % (0-9) 8 % (0-9) Eosinophils (%) (Auto) 1 % (0-3) 2 % (0-3) Basophils (%) (Auto) 0 % (0-3) 0 % (0-3) Neutrophils # (Auto) 6.6 x10^3/uL (1.8-7.7) 4.3 x10^3/uL (1.8-7.7) Lymphocytes # (Auto) 1.4 x10^3/uL (1.0-4.8) 2.7 x10^3/uL (1.0-4.8) Monocytes # (Auto) 0.6 x10^3/uL (0.0-1.1) 0.6 x10^3/uL (0.0-1.1) Eosinophils # (Auto) 0.0 x10^3/uL (0.0-0.7) 0.1 x10^3/uL (0.0-0.7) Basophils # (Auto) 0.0 x10^3/uL (0.0-0.2) 0.0 x10^3/uL (0.0-0.2) Prothrombin Time 12.4 SEC (11.7-14.0) Prothromb Time International Ratio 1.0 (0.8-1.1) Activated Partial Thromboplast Time 29 SEC (24-38) Sodium Level 142 mmol/L (136-145) 147 mmol/L (136-145) Potassium Level 4.1 mmol/L (3.5-5.1) 3.7 mmol/L (3.5-5.1) Chloride Level 102 mmol/L (98-107) 108 mmol/L (98-107) Carbon Dioxide Level 31 mmol/L (21-32) 28 mmol/L (21-32) Anion Gap 9 (6-14) 11 (6-14) Blood Urea Nitrogen 12 mg/dL (8-26) 9 mg/dL (8-26) Creatinine 1.1 mg/dL (0.7-1.3) 0.9 mg/dL (0.7-1.3) Estimated GFR (Cockcroft-Gault) 68.3 86.1 BUN/Creatinine Ratio 11 (6-20) Glucose Level 95 mg/dL (70-99) 75 mg/dL (70-99) Lactic Acid Level 1.9 mmol/L (0.4-2.0) Calcium Level 8.6 mg/dL (8.5-10.1) 8.5 mg/dL (8.5-10.1) Total Bilirubin 0.3 mg/dL (0.2-1.0) Aspartate Amino Transf (AST/SGOT) 16 U/L (15-37) Alanine Aminotransferase (ALT/SGPT) 13 U/L (16-63) Alkaline Phosphatase 99 U/L (46-116) Creatine Kinase 78 U/L (39-308) Troponin I Quantitative < 0.017 ng/mL (0.000-0.055) Total Protein 7.7 g/dL (6.4-8.2) Albumin 3.4 g/dL (3.4-5.0) Albumin/Globulin Ratio 0.8 (1.0-1.7) Glucose (Fingerstick) 96 mg/dL (70-99) Urine Color Yellow Urine Clarity Clear Urine pH 7.5 Urine Specific [place] 1.010 Urine Protein Negative mg/dL (NEG-TRACE) Urine Glucose (UA) Negative mg/dL (NEG) Urine Ketones (Stick) Negative mg/dL (NEG) Urine Blood Negative (NEG) Urine Nitrite Negative (NEG) Urine Bilirubin Negative (NEG) Urine Urobilinogen Dipstick 1.0 mg/dL (0.2 mg/dL) Urine Leukocyte Esterase Negative (NEG) Urine RBC 0 /HPF (0-2) Urine WBC Occ /HPF (0-4) Urine Squamous Epithelial Cells Occ /LPF Urine Bacteria 0 /HPF (0-FEW) Urine Opiates Screen Neg (NEG) Urine Methadone Screen Neg (NEG) Urine Barbiturates Neg (NEG) Urine Phencyclidine Screen Neg (NEG) Urine Amphetamine/Methamphetamine Neg (NEG) Urine Benzodiazepines Screen Neg (NEG) Urine Cocaine Screen Neg (NEG) Urine Cannabinoids Screen Neg (NEG) Urine Ethyl Alcohol Neg (NEG) Vitamin B12 Level 620 pg/mL (247-911) Thyroid Stimulating Hormone (TSH) 1.202 uIU/mL (0.358-3.74) GEMMA MONTOYA MD Jan 11, 2019 13:36
--- NOTE | 2019-01-11 13:38 | SSS ---
ADMIT DATE: 01/11/2019 CHIEF COMPLAINT: Arm weakness and leg weakness. HISTORY OF PRESENT ILLNESS: The patient is a pleasant middle-aged male, who had a cervical fusion years ago and since then he has had to have a PEG tube because he states they nicked his epiglottis. Basically, he presented last night with some neuro symptoms with leg weakness and arm weakness bilaterally. We have admitted the patient overnight for observation. This morning, we consulted Neurosurgery. They felt like this is not a neurosurgical issue. We are going to go ahead and discharge the patient. PAST MEDICAL HISTORY: Anterior cervical fusion, PEG tube because of nicked epiglottis during surgery according to the patient, aspiration pneumonia, bipolar schizoaffective disorder, pacemaker. ALLERGIES: SULFA. FAMILY HISTORY: Coronary artery disease. SOCIAL HISTORY: Does not drink, smoke or take drugs. MEDICATIONS: Reviewed, please refer to the MRAD. REVIEW OF SYSTEMS: GENERAL: No history of weight change, weakness or fevers. SKIN: No bruising, hair changes or rashes. EYES: No blurred, double or loss of vision. NOSE AND THROAT: No history of nosebleeds, hoarseness or sore throat. HEART: No history of palpitations, chest pain or shortness of breath on exertion. LUNGS: Denies cough, hemoptysis, wheezing or shortness of breath. GASTROINTESTINAL: Denies changes in appetite, nausea, vomiting, diarrhea or constipation. GENITOURINARY: No history of frequency, urgency, hesitancy or nocturia. NEUROLOGIC: Denies history of numbness, tingling, tremor or weakness. PSYCHIATRIC: No history of panic, anxiety or depression. ENDOCRINE: No history of heat or cold intolerance, polyuria or polydipsia. EXTREMITIES: Denies muscle weakness, joint pain, pain on walking or stiffness. PHYSICAL EXAMINATION: VITALS: Within normal limits and are stable. GENERAL: No apparent distress. Alert and oriented. HEENT: Head is normocephalic, atraumatic, pupils were equally round and reactive to light and accommodation. NECK: Supple, no JVD, no thyromegaly was noted. LUNGS: Clear to auscultation in all lung padgett without rhonchi or wheezing. HEART: RRR, S1, S2 present. Peripheral pulses intact, no obvious murmurs were noted. ABDOMEN: Soft, nontender. Positive bowel sounds no organomegaly, normal bowel sounds. The patient has a PEG tube. EXTREMITIES: Without any cyanosis, clubbing, or edema. Pedal pulses intact, Homans sign is negative. NEUROLOGIC: Normal speech, normal tone. A & O x3, moves all extremities, no obvious focal deficits. PSYCHIATRIC: Normal affect, normal mood. Stable. SKIN: No ulcerations or rashes, good skin turgor, no jaundice. VASCULAR: Good capillary refill, neurovascular bundle appears to be intact. ASSESSMENT AND PLAN: Resolving neuro symptoms, suspect possible psychosomatic component. The patient did well overnight. We observed him. We are going to let him go home. DISPOSITION: Home. ACTIVITY: As tolerated. DIET: Low sodium. MEDICATIONS: Please see MRAD. TOTAL TIME: 32 minutes. RAFI THOMPSON DO DR: LUZ/maty JOB#: [id number] / [id number]
[2019-01-11] MEDS ORDERED: OXYC1TAB15 PO (13:55)
[2019-01-11] MEDS ORDERED: ASPI325T8 PO (13:55)
[2019-01-11] MEDS ORDERED: ASPIRIN 325 MG TABLET PO SCH (14:00)
--- NOTE | 2019-01-11 15:00 | NUR ---
discharge: Teaching verbal and written. Reviewed medication, follow-up, stroke prevention, aspirin and heart health, ect. Continue prior feedings as scheduled. Complete NPO. IV removed without complications, catheter tip in-tact. 1 prescription for Percocet given to patient. All belongings with patient. Patient ambulated off of unit accompanied by nurse. outsole caser picked up patient
[2019-01-11] MEDS ORDERED: ASENAPINE MALEATE SL SCH (21:00)
== END 2019-01-11 14:45 | disposition home or self-care (01) | DRG 882 ==
LOC: ER 17:32 → 2 NORTH 20:09
PROVIDERS: ADMIT Internal Medicine; ATTEND Internal Medicine
DX: F45.9 Somatoform disorder, unspecified (principal); F17.210 Nicotine dependence, cigarettes, uncomplicated; F25.0 Schizoaffective disorder, bipolar type; I10 Essential (primary) hypertension; Z79.82 Long term (current) use of aspirin; Z82.49 Family history of ischemic heart disease and other diseases of the circulatory system; Z95.0 Presence of cardiac pacemaker; Z93.1 Gastrostomy status; Z88.2 Allergy status to sulfonamides; Z88.8 Allergy status to other drugs, medicaments and biological substances; Z98.1 Arthrodesis status
CPT/HCPCS: 36415; 70450; 70496; 70498; 71045; 80048; 80053; 80061; 80307; 81001; 82550; 82607; 82962; 83605; 84443; 84484; 85025; 85610; 85730; 93005; 96374; J3010; Q9967; 99291-25; G0378

== ENCOUNTER 2019-04-19 06:35 | Emergency (ER) | payer MEDICARE ==
[~2019-04-19] VITALS: Ht 177.8 cm; Wt 22.7 kg
[~2019-04-19 06:35] MED LIST changes: +ASEN10TA9 SL; +ASPI325T8 PO; +BENZ1TAB5 PEG; +DULO60CA6 PEG; +GABA600T7 PEG; +LAMO200T6 PEG; +OXYC1TAB15 PO; +PANT40GR PEG
[2019-04-19 06:43] VITALS: BP 122/79
--- NOTE | 2019-04-19 07:01 | PHYS DOC ---
Past Medical History Past Medical History: Arrhythmia, Bipolar Additional Past Medical Histor: ASPIRATION PNA AFTER SX, SCHIZO-AFFECTIVE DISORDER, FEEDING TUBE Past Surgical History: Pacemaker Additional Past Surgical Histo: G-tube placement, cervical surgery Smoking Status: Current Every Day Smoker Alcohol Use: None Drug Use: None Adult General Chief Complaint Chief Complaint: GTUBE REPLACEMENT/MALFUNCTION [facility] HPI Patient is a 58 year old with history of schizoaffective disorder, bipolar, aspiration pneumonia, PEG tube in place since 2013 who presents with complaint of feeding tube came out. Patient states this morning he rolled and felt a pop in his PEG tube and it came out. Patient stated there wasn't any inflated balloon and he was able to put the tube inside. Patient denies other symptoms. Patient states the PEG tube was replaced about one year ago. Review of Systems Review of Systems Constitutional: Denies fever or chills [] Eyes: Denies change in visual acuity, redness, or eye pain [] HENT: Denies nasal congestion or sore throat [] Respiratory: Denies cough or shortness of breath [] Cardiovascular: No additional information not addressed in HPI [] GI: Denies abdominal pain, nausea, vomiting, bloody stools or diarrhea [] : Denies dysuria or hematuria [] Musculoskeletal: Denies back pain or joint pain [] Integument: Denies rash or skin lesions [] Neurologic: Denies headache, focal weakness or sensory changes [] Endocrine: Denies polyuria or polydipsia [] All other systems were reviewed and found to be within normal limits, except as documented in this note. Allergies Allergies Allergies Coded Allergies Type Severity Reaction Last Updated Verified Sulfa (Sulfonamide Antibiotics) Allergy Intermediate 11/17/15 Yes haloperidol Allergy Intermediate Unknown 01/10/19 Yes Physical Exam Physical Exam Constitutional: Well developed, well nourished, no distress, non-toxic appearance. [] HENT: Normocephalic, atraumatic. Eyes: PERRLA, EOMI, conjunctiva normal, no discharge. [] Neck: Normal range of motion, no tenderness, supple, no stridor. [] Cardiovascular:Heart rate regular rhythm, no murmur [] Lungs & Thorax: Bilateral breath sounds clear to auscultation [] Abdomen: Bowel sounds normal, soft, no tenderness, no masses, no pulsatile masses, feeding tube in place with erythema of the skin around the orifice. [] Skin: Warm, dry, no erythema, no rash. [] Back: No tenderness, no CVA tenderness. [] Extremities: No tenderness, no cyanosis, no clubbing, ROM intact, no edema. [] Neurologic: Alert and oriented X 3, no focal deficits noted. [] Psychologic: Affect normal, judgement normal, mood normal. [] Current Patient Data Vital Signs Vital Signs Date Time Temp Pulse Resp B/P (MAP) Pulse Ox O2 Delivery O2 Flow Rate FiO2 04/19/19 06:43 98.3 87 20 122/79 (93) 96 Room Air 98.3 EKG EKG [] Radiology/Procedures Radiology/Procedures [] Course & Med Decision Making Course & Med Decision Making Evaluation of patient in ER showed 58-year-old male patient presented for placement of PEG tube that was replaced without problem. Dragon Disclaimer Dragon Disclaimer This electronic medical record was generated, in whole or in part, using a voice recognition dictation system. Departure Departure Impression: Primary Impression: Dislodged gastrostomy tube Disposition: HOME, SELF-CARE (at 0659) Condition: IMPROVED Referrals: GISELLE ROLDAN MD (PCP) Patient Instructions: PEG, Home Care, [id number] Additional Instructions: Continue current medication Follow-up with your primary care physician in 3-5 days Return to ER if not getting better Thank you for visiting [facility]. We appreciate you trusting us with your care. If any additional problems come up don't hesitate to return to visit us. Please follow up with your primary care provider so they can plan additional care if needed and know about the problem that you had. If symptoms worsen come back to the Emergency Department. Any concerning symptoms that start such as chest pain, shortness of air, weakness or numbness on one side of the body, running high fevers or any other concerning symptoms return to the ER. Gastrostomy Tube Replacement Indication: Deflated balloon of PEG tube Procedure: The patient was placed in the supine position. Old gastric tube was removed with no problem and the patient's gastric tube was replaced.. The placement was verified with insertion of fluid without problem. The patient tolerated the procedure well Complications: none. AIMEE JACKSON MD Apr 19, 2019 07:01
== END 2019-04-19 07:27 | disposition home or self-care (01) ==
LOC: ER 06:35
DX: T85.528A Displacement of other gastrointestinal prosthetic devices, implants and grafts, initial encounter (principal); F31.9 Bipolar disorder, unspecified; Z95.0 Presence of cardiac pacemaker; F17.200 Nicotine dependence, unspecified, uncomplicated; Z88.2 Allergy status to sulfonamides; Z88.8 Allergy status to other drugs, medicaments and biological substances; Y82.8 Other medical devices associated with adverse incidents; Y92.89 Other specified places as the place of occurrence of the external cause
CPT/HCPCS: 43762; 99284

== ENCOUNTER 2019-10-29 01:14 | Inpatient (IN) | payer MEDICARE ==
[~2019-10-29] VITALS: Ht 180.3 cm; Wt 85.9 kg
[~2019-10-29 01:14] MED LIST changes: +ARIP400S IM
[2019-10-29 02:45] LABS: BILIRUBIN,URINE NEGATIVE (NEG); CLARITY,URINE CLEAR; COLOR,URINE AMBER; NITRITE,URINE NEGATIVE (NEG); PH,URINE 5.5 (<5.0-8.0); PROTEIN,URINE 100 mg/dL (NEG-TRACE)
[2019-10-29 02:48] LABS: SQUAMOUS EPITHELIAL CELL,UR FEW /LPF
[2019-10-29 02:49] LABS: AMORPHOUS SEDIMENT,UR PRESENT /HPF; BACTERIA,URINE 0 /HPF (0-FEW); HYALINE CASTS, URINE FEW /HPF; WBC,URINE OCC /HPF (0-4)
[2019-10-29 02:51] LABS: AMPHETAMINE/METHAMPHETAMINE NEG (NEG); BARBITURATES NEG (NEG); BENZODIAZEPINES NEG (NEG); CANNABINOIDS NEG (NEG); COCAINE NEG (NEG); METHADONE NEG (NEG); OPIATES NEG (NEG); PHENCYCLIDINE NEG (NEG)
[2019-10-29 03:02] LABS: BASO # 0.1 x10^3/uL (0.0-0.2); BASO % 1 % (0-3); EOS % 0 % (0-3); HEMATOCRIT 41.6 % (39.0-53.0); HEMOGLOBIN 14.4 g/dL (13.0-17.5); LYMPH # 1.1 x10^3/uL (1.0-4.8); LYMPH % 11 % (24-48); MEAN CORPUSCULAR HEMOGLOBIN 35 pg (25-35); MEAN CORPUSCULAR HGB CONC 35 g/dL (31-37); MEAN CORPUSCULAR VOLUME 101 fL (79-100); MONO # 0.9 x10^3/uL (0.0-1.1); MONO % 9 % (0-9); NEUT % 79 % (31-73); PLATELET COUNT 174 x10^3/uL (140-400); RED BLOOD COUNT 4.11 x10^6/uL (4.30-5.70); RED CELL DISTRIBUTION WIDTH 14.5 % (11.5-14.5); WHITE BLOOD COUNT 10.1 x10^3/uL (4.0-11.0)
[2019-10-29 03:09] LABS: CALCIUM 8.1 mg/dL (8.5-10.1); CREATININE 0.7 mg/dL (0.7-1.3); POTASSIUM 3.5 mmol/L (3.5-5.1)
[2019-10-29 03:15] LABS: ALBUMIN/GLOBULIN RATIO 0.8 (1.0-1.7); TOTAL BILIRUBIN 0.3 mg/dL (0.2-1.0)
--- NOTE | 2019-10-29 05:34 | PHYS DOC ---
Past Medical History Past Medical History: Arrhythmia, Bipolar, Heart Disease Additional Past Medical Histor: ASPIRATION PNA AFTER SX, SCHIZO-AFFECTIVE DISORDER, FEEDING TUBE Past Surgical History: Pacemaker Additional Past Surgical Histo: G-tube placement, cervical surgery Smoking Status: Current Every Day Smoker Alcohol Use: None Drug Use: None General Adult EDM: Chief Complaint: ALTERED MENTAL STATUS HPI: HPI: Patient is a 58-year-old male with past medical history of schizoaffective disorder, hypertension who presents to the emergency room with altered mental status. Patient is unable to provide any history at this time. Patient is oriented to self but not time or place. When asked any questions patient's daughters and gets anxious. Roommate states that this happened several months ago and he had to be admitted at that time. He states that the issue with some kind of medication interaction. He reports that his roommate has been taking his medications as prescribed. Review of Systems: Review of Systems: Unable to obtain due to altered mental status Heart Score: Risk Factors: Risk Factors: DM, Current or recent (<one month) smoker, HTN, HLP, family history of CAD, obesity. Risk Scores: Score 0 - 3: 2.5% MACE over next 6 weeks - Discharge Home Score 4 - 6: 20.3% MACE over next 6 weeks - Admit for Clinical Observation Score 7 - 10: 72.7% MACE over next 6 weeks - Early Invasive Strategies Current Medications: Current Medications Medications (Trade) Dose Ordered Sig/Christina Start Time Stop Time Status Last Admin Dose Admin Lorazepam (Ativan Inj) 2 mg 1X ONCE 10/29/19 02:00 10/29/19 02:01 DC 10/29/19 02:27 2 MG Allergies: Allergies: Allergies Coded Allergies Type Severity Reaction Last Updated Verified Sulfa (Sulfonamide Antibiotics) Allergy Intermediate 11/17/15 Yes haloperidol Allergy Intermediate Unknown 01/10/19 Yes Physical Exam: PE: General: Awake, alert, mild distress. Well Nourished, well hydrated. Anxious HEENT: Atraumatic, EOMI, PERRL, airway patent, moist oral mucosa Neck: Supple, trachea midline Respiratory: CTA bilaterally, normal effort, no wheezing/crackles CV: RRR, no murmur, cap refill <2 GI: Soft, nondistended, nontender, no masses MSK: No obvious deformities Skin: Warm, dry, intact Neuro: A&O x1, speech stuttering, sensory and motor grossly intact, no focal deficits, confusion Psych: Anxious, not suicidal or homicidal Current Patient Data: Labs: Laboratory Tests Test 10/29/19 02:35 10/29/19 02:45 Urine Collection Type Unknown Urine Color Juani Urine Clarity Clear Urine pH 5.5 (<5.0-8.0) Urine Specific [place] >=1.030 (1.000-1.030) Urine Protein 100 mg/dL (NEG-TRACE) Urine Glucose (UA) Negative mg/dL (NEG) Urine Ketones (Stick) 15 mg/dL (NEG) Urine Blood Trace (NEG) Urine Nitrite Negative (NEG) Urine Bilirubin Negative (NEG) Urine Urobilinogen Dipstick 1.0 mg/dL (0.2 mg/dL) Urine Leukocyte Esterase Negative (NEG) Urine RBC 1-2 /HPF (0-2) Urine WBC Occ /HPF (0-4) Urine Squamous Epithelial Cells Few /LPF Urine Amorphous Sediment Present /HPF Urine Bacteria 0 /HPF (0-FEW) Urine Hyaline Casts Few /HPF Urine Mucus Mod /LPF Urine Opiates Screen Neg (NEG) Urine Methadone Screen Neg (NEG) Urine Barbiturates Neg (NEG) Urine Phencyclidine Screen Neg (NEG) Urine Amphetamine/Methamphetamine Neg (NEG) Urine Benzodiazepines Screen Neg (NEG) Urine Cocaine Screen Neg (NEG) Urine Cannabinoids Screen Neg (NEG) Urine Ethyl Alcohol Pos (NEG) White Blood Count 10.1 x10^3/uL (4.0-11.0) Red Blood Count 4.11 x10^6/uL (4.30-5.70) L Hemoglobin 14.4 g/dL (13.0-17.5) Hematocrit 41.6 % (39.0-53.0) Mean Corpuscular Volume 101 fL (79-100) H Mean Corpuscular Hemoglobin 35 pg (25-35) Mean Corpuscular Hemoglobin Concent 35 g/dL (31-37) Red Cell Distribution Width 14.5 % (11.5-14.5) Platelet Count 174 x10^3/uL (140-400) Neutrophils (%) (Auto) 79 % (31-73) H Lymphocytes (%) (Auto) 11 % (24-48) L Monocytes (%) (Auto) 9 % (0-9) Eosinophils (%) (Auto) 0 % (0-3) Basophils (%) (Auto) 1 % (0-3) Neutrophils # (Auto) 8.0 x10^3/uL (1.8-7.7) H Lymphocytes # (Auto) 1.1 x10^3/uL (1.0-4.8) Monocytes # (Auto) 0.9 x10^3/uL (0.0-1.1) Eosinophils # (Auto) 0.0 x10^3/uL (0.0-0.7) Basophils # (Auto) 0.1 x10^3/uL (0.0-0.2) Sodium Level 145 mmol/L (136-145) Potassium Level 3.5 mmol/L (3.5-5.1) Chloride Level 106 mmol/L (98-107) Carbon Dioxide Level 28 mmol/L (21-32) Anion Gap 11 (6-14) Blood Urea Nitrogen 18 mg/dL (8-26) Creatinine 0.7 mg/dL (0.7-1.3) Estimated GFR (Cockcroft-Gault) 115.0 BUN/Creatinine Ratio 26 (6-20) H Glucose Level 109 mg/dL (70-99) H Calcium Level 8.1 mg/dL (8.5-10.1) L Total Bilirubin 0.3 mg/dL (0.2-1.0) Aspartate Amino Transferase (AST) 202 U/L (15-37) H Alanine Aminotransferase (ALT) 191 U/L (16-63) H Alkaline Phosphatase 102 U/L (46-116) Total Protein 7.0 g/dL (6.4-8.2) Albumin 3.0 g/dL (3.4-5.0) L Albumin/Globulin Ratio 0.8 (1.0-1.7) L Ethyl Alcohol Level 324 mg/dL (0-10) H Laboratory Tests 10/29/19 02:45 Laboratory Tests 10/29/19 02:45 Vital Signs: Vital Signs Date Time Temp Pulse Resp B/P (MAP) Pulse Ox O2 Delivery O2 Flow Rate FiO2 10/29/19 01:29 96.9 109 17 146/84 (104) 94 Room Air 96.9 EKG: EKG: [] Radiology/Procedures: Radiology/Procedures: [] Course & Med Decision Making: Course & Med Decision Making Pertinent Labs and Imaging studies reviewed. (See chart for details) Patient is a 58-year-old male who presents the emergency room with altered mental status. Differential diagnosis includes substance abuse, medication interactions, schizoaffective disorder exacerbation, metabolic encephalopathy. Work-up was ordered including CBC, BMP, drug screen, alcohol level. At this time roommate does not feel that he is safe to go home as he is been like this for several days. Patient will be admitted for altered mental status. Dragon Disclaimer: Dragon Disclaimer: This electronic medical record was generated, in whole or in part, using a voice recognition dictation system. Departure Departure Impression: Primary Impression: Acute encephalopathy Additional Impression: AMS (altered mental status) Disposition: ADMITTED INPATIENT Condition: STABLE Referrals: GISELLE ROLDAN MD (PCP) Justicifation of Admission Dx: Justifications for Admission: Justification of Admission Dx: Yes KENNA CULVER MD Oct 29, 2019 05:34
[2019-10-29 07:45] VITALS: BP 142/80
[2019-10-29] MEDS ORDERED: ACETAMINOPHEN 325 MG TABLET. PO PRN (07:45)
[2019-10-29] MEDS ORDERED: ONDANSETRON PF 4 MG/2 ML VIAL. IV PRN (07:45)
[2019-10-29] MEDS ORDERED: ACETAMINOPHEN 650 MG SUPP.RECT. PR PRN (07:45)
--- NOTE | 2019-10-29 07:51 | PDOC1 ---
History and Physical Date of Admission Date of Admission DATE: 10/29/19 TIME: 07:33 Identification/Chief Complaint Chief Complaint Acute encephalopathy Source Source: Caregiver, Chart review, Patient History of Present Illness History of Present Illness Mr Humphrey is a 58yo M w/ PMHhx of bipolar disorder, schizoaffective disorder, aspiration pna, anterior cervical fusion, s/p PEG after nicking epiglottis per chart during cervical surgery, s/p pacer due to arrhythmia who presents to the e mergency room with altered mental status. Patient is providing minimal history at this time. Patient is oriented to self but not time or place. He states he was recently admitted to [facility] for an issue with some kind of medication interaction. Initially his roommate and daughter was in the room but have since left I am unable to reach him. On further review of systems patient notes right lower quadrant pain and is asking for a cigarette. He denies any chest pain or shortness of breath. He does note constipation no diarrhea. No fever chills no recent COVID-19 contacts. He is very unsteady. He notes no malfunctions with his Leon button PEG tube. He is on telemetry with no obvious changes, no EKGs available to me at this time. No imaging available to me at this time. WBC 10.1, Hb 14.4, platelets 174, MCV 101, NA 145, K3.5, BUN 18, creatinine 0.7, glucose 109, albumin 3, alkaline phosphatase 102, ALT 191, AST 202, bilirubin 0.3, calcium 8.1. Alcohol level 324 at 0245 10/29/2019 Admitted for further care Past Medical History Cardiovascular: AFIB, HTN GI: GERD Psych: Anxiety, Addictions, Bipolar Past Surgical History Past Surgical History: Pacemaker, Other (PEG) Family History Family History: High Cholestrol, Hypertension Social History Smoke: 1 pack per day ALCOHOL: heavy Drugs: None Current Medications Current Medications Current Medications Lorazepam (Ativan Inj) 2 mg 1X ONCE IVP Last administered on 10/29/19at 02:27; Start 10/29/19 at 02:00; Stop 10/29/19 at 02:01; Status DC Active Scripts Active Reported Aspirin 325 Mg Tablet 325 Mg PO DAILY Gabapentin 600 Mg Tablet 600 Mg PEG TID Benztropine Mesylate 1 Mg Tablet 1 Tab PEG BID Saphris (Asenapine Maleate) 10 Mg Tab.subl 1 Tab SL QHS Lamotrigine 200 Mg Tablet 1 Tab PEG BID Cymbalta (Duloxetine Hcl) 60 Mg Capsule. 1 Cap PEG DAILY Protonix Packet (Pantoprazole Sodium) 40 Mg Granpkt. 40 Mg PEG DAILY Allergies Allergies: Coded Allergies: Sulfa (Sulfonamide Antibiotics) (Verified Allergy, Intermediate, 11/17/15) PATIENT STATES THAT THE REACTION WAS A LONG TIME AGO AND HE DOES NOT REMEMBER THE REACTION. haloperidol (Verified Allergy, Intermediate, Unknown, 01/10/19) ROS General: YES: Fatigue, Malaise; No: Chills, Night Sweats, Appetite, Other PSYCHOLOGICAL ROS: YES: Anxiety, Disorientation; No: Behavioral Disorder, Concentration difficultie, Decreased libido, Depression, Hallucinations, Hostility, Irritablity, Memory difficulties, Mood Swings, Obsessive thoughts, Physical abuse, Sexual abuse, Sleep disturbances, Suicidal ideation, Other Eyes: No Blurry vision, No Decreased vision, No Double vision, No Dry eyes, No Excessive tearing, No Eye Pain, No Itchy Eyes, No Loss of vision, No Photophobia, No Scotomata, No Uses contacts, No Uses glasses, No Other HEENT: No: Heacaches, Visual Changes, Hearing change, Nasal congestion, Nasal discharge, Oral lesions, Sinus pain, Sore Throat, Epistaxis, Sneezing, Snoring, Tinnitus, Vertigo, Vocal changes, Other ALLERGY AND IMMUNOLOGY: No: Hives, Insect Bite Sensitivity, Itchy/Watery Eyes, Nasal Congestion, Post Nasal Drip, Seasonal Allergies, Other Hematological and Lymphatic: No: Bleeding Problems, Blood Clots, Blood Transfusions, Brusing, Night Sweats, Pallor, Swollen Lymph Nodes, Other ENDOCRINE: No: Breast Changes, Galactorrhea, Hair Pattern Changes, Hot Flashes, Malaise/lethargy, Mood Swings, Palpitations, Polydipsia/polyuria, Skin Changes, Temperature Intolerance, Unexpected Weight Changes, Other Breast: No New/Changing Breast Lumps, No Nipple changes, No Nipple discharge, No Other Respiratory: No: Cough, Hemoptysis, Orthopnea, Pleuritic Pain, Shortness of breath, SOB with excertion, Sputum Changes, Stridor, Tachypnea, Wheezing, Other Cardiovascular: No Chest Pain, No Palpitations, No Orthopnea, No Paroxysmal Noc. Dyspnea, No Edema, No Lt Headedness, No Other Gastrointestinal: Yes Nausea, Yes Abdominal Pain; No Vomiting, No Diarrhea, No Constipation, No Melena, No Hematochezia, No Other Genitourinary: No Dysuria, No Frequency, No Incontinence, No Hematuria, No Retention, No Discharge, No Urgency, No Pain, No Flank Pain, No Other, No , No , No , No , No , No , No Musculoskeletal: Yes Gait Disturbance; No Joint Pain, No Joint Stiffness, No Joint Swelling, No Muscle Pain, No Muscular Weakness, No Pain In:, No Swelling In:, No Other Neurological: Yes Behavorial Changes; No Bowel/Bladder ControlChng, No Confusion, No Dizziness, No Gait Disturbance, No Headaches, No Impaired Coord/balance, No Memory Loss, No Numbness/Tingling, No Seizures, No Speech Problems, No Tremors, No Visual Changes, No Weakness, No Other Skin: No Dry Skin, No Eczema, No Hair Changes, No Lumps, No Mole Changes, No Mottling, No Nail Changes, No Pruritus, No Rash, No Skin Lesion Changes, No Othe r, No Acne Physical Exam General: Alert, Cooperative, mild distress HEENT: PERRLA Lungs: Clear to auscultation, Normal air movement Heart: S1S2, RRR, no thrills, no rubs, no gallops, no murmurs Abdomen: Normal bowel sounds, Soft, No hepatosplenomegaly, No masses, Other (RLQ in place, Leon button PEG in place) Rectal Exam: not examined Extremities: No clubbing, No cyanosis, No edema, Normal pulses, No tenderness/swelling Skin: No rashes, No breakdown, No significant lesion Neuro: Normal gait, Normal speech, Strength at 5/5 X4 ext, Normal tone, Sensati on intact, Cranial nerves 3-12 NL, Reflexes 2+ Psych/Mental Status: Mental status NL, Mood NL Vitals Vitals Vital Signs Date Time Temp Pulse Resp B/P (MAP) Pulse Ox O2 Delivery O2 Flow Rate FiO2 10/29/19 05:55 96 24 96 10/29/19 01:29 96.9 146/84 (104) Room Air 96.9 Labs Labs Laboratory Tests Test 10/29/19 02:35 10/29/19 02:45 Urine Collection Type Unknown Urine Color Juani Urine Clarity Clear Urine pH 5.5 (<5.0-8.0) Urine Specific [place] >=1.030 (1.000-1.030) Urine Protein 100 mg/dL (NEG-TRACE) Urine Glucose (UA) Negative mg/dL (NEG) Urine Ketones (Stick) 15 mg/dL (NEG) Urine Blood Trace (NEG) Urine Nitrite Negative (NEG) Urine Bilirubin Negative (NEG) Urine Urobilinogen Dipstick 1.0 mg/dL (0.2 mg/dL) Urine Leukocyte Esterase Negative (NEG) Urine RBC 1-2 /HPF (0-2) Urine WBC Occ /HPF (0-4) Urine Squamous Epithelial Cells Few /LPF Urine Amorphous Sediment Present /HPF Urine Bacteria 0 /HPF (0-FEW) Urine Hyaline Casts Few /HPF Urine Mucus Mod /LPF Urine Opiates Screen Neg (NEG) Urine Methadone Screen Neg (NEG) Urine Barbiturates Neg (NEG) Urine Phencyclidine Screen Neg (NEG) Urine Amphetamine/Methamphetamine Neg (NEG) Urine Benzodiazepines Screen Neg (NEG) Urine Cocaine Screen Neg (NEG) Urine Cannabinoids Screen Neg (NEG) Urine Ethyl Alcohol Pos (NEG) White Blood Count 10.1 x10^3/uL (4.0-11.0) Red Blood Count 4.11 x10^6/uL (4.30-5.70) Hemoglobin 14.4 g/dL (13.0-17.5) Hematocrit 41.6 % (39.0-53.0) Mean Corpuscular Volume 101 fL (79-100) Mean Corpuscular Hemoglobin 35 pg (25-35) Mean Corpuscular Hemoglobin Concent 35 g/dL (31-37) Red Cell Distribution Width 14.5 % (11.5-14.5) Platelet Count 174 x10^3/uL (140-400) Neutrophils (%) (Auto) 79 % (31-73) Lymphocytes (%) (Auto) 11 % (24-48) Monocytes (%) (Auto) 9 % (0-9) Eosinophils (%) (Auto) 0 % (0-3) Basophils (%) (Auto) 1 % (0-3) Neutrophils # (Auto) 8.0 x10^3/uL (1.8-7.7) Lymphocytes # (Auto) 1.1 x10^3/uL (1.0-4.8) Monocytes # (Auto) 0.9 x10^3/uL (0.0-1.1) Eosinophils # (Auto) 0.0 x10^3/uL (0.0-0.7) Basophils # (Auto) 0.1 x10^3/uL (0.0-0.2) Sodium Level 145 mmol/L (136-145) Potassium Level 3.5 mmol/L (3.5-5.1) Chloride Level 106 mmol/L (98-107) Carbon Dioxide Level 28 mmol/L (21-32) Anion Gap 11 (6-14) Blood Urea Nitrogen 18 mg/dL (8-26) Creatinine 0.7 mg/dL (0.7-1.3) Estimated GFR (Cockcroft-Gault) 115.0 BUN/Creatinine Ratio 26 (6-20) Glucose Level 109 mg/dL (70-99) Calcium Level 8.1 mg/dL (8.5-10.1) Total Bilirubin 0.3 mg/dL (0.2-1.0) Aspartate Amino Transf (AST/SGOT) 202 U/L (15-37) Alanine Aminotransferase (ALT/SGPT) 191 U/L (16-63) Alkaline Phosphatase 102 U/L (46-116) Total Protein 7.0 g/dL (6.4-8.2) Albumin 3.0 g/dL (3.4-5.0) Albumin/Globulin Ratio 0.8 (1.0-1.7) Ethyl Alcohol Level 324 mg/dL (0-10) Laboratory Tests Test 10/29/19 02:35 10/29/19 02:45 Urine Collection Type Unknown Urine Color Juani Urine Clarity Clear Urine pH 5.5 (<5.0-8.0) Urine Specific [place] >=1.030 (1.000-1.030) Urine Protein 100 mg/dL (NEG-TRACE) Urine Glucose (UA) Negative mg/dL (NEG) Urine Ketones (Stick) 15 mg/dL (NEG) Urine Blood Trace (NEG) Urine Nitrite Negative (NEG) Urine Bilirubin Negative (NEG) Urine Urobilinogen Dipstick 1.0 mg/dL (0.2 mg/dL) Urine Leukocyte Esterase Negative (NEG) Urine RBC 1-2 /HPF (0-2) Urine WBC Occ /HPF (0-4) Urine Squamous Epithelial Cells Few /LPF Urine Amorphous Sediment Present /HPF Urine Bacteria 0 /HPF (0-FEW) Urine Hyaline Casts Few /HPF Urine Mucus Mod /LPF Urine Opiates Screen Neg (NEG) Urine Methadone Screen Neg (NEG) Urine Barbiturates Neg (NEG) Urine Phencyclidine Screen Neg (NEG) Urine Amphetamine/Methamphetamine Neg (NEG) Urine Benzodiazepines Screen Neg (NEG) Urine Cocaine Screen Neg (NEG) Urine Cannabinoids Screen Neg (NEG) Urine Ethyl Alcohol Pos (NEG) White Blood Count 10.1 x10^3/uL (4.0-11.0) Red Blood Count 4.11 x10^6/uL (4.30-5.70) Hemoglobin 14.4 g/dL (13.0-17.5) Hematocrit 41.6 % (39.0-53.0) Mean Corpuscular Volume 101 fL (79-100) Mean Corpuscular Hemoglobin 35 pg (25-35) Mean Corpuscular Hemoglobin Concent 35 g/dL (31-37) Red Cell Distribution Width 14.5 % (11.5-14.5) Platelet Count 174 x10^3/uL (140-400) Neutrophils (%) (Auto) 79 % (31-73) Lymphocytes (%) (Auto) 11 % (24-48) Monocytes (%) (Auto) 9 % (0-9) Eosinophils (%) (Auto) 0 % (0-3) Basophils (%) (Auto) 1 % (0-3) Neutrophils # (Auto) 8.0 x10^3/uL (1.8-7.7) Lymphocytes # (Auto) 1.1 x10^3/uL (1.0-4.8) Monocytes # (Auto) 0.9 x10^3/uL (0.0-1.1) Eosinophils # (Auto) 0.0 x10^3/uL (0.0-0.7) Basophils # (Auto) 0.1 x10^3/uL (0.0-0.2) Sodium Level 145 mmol/L (136-145) Potassium Level 3.5 mmol/L (3.5-5.1) Chloride Level 106 mmol/L (98-107) Carbon Dioxide Level 28 mmol/L (21-32) Anion Gap 11 (6-14) Blood Urea Nitrogen 18 mg/dL (8-26) Creatinine 0.7 mg/dL (0.7-1.3) Estimated GFR (Cockcroft-Gault) 115.0 BUN/Creatinine Ratio 26 (6-20) Glucose Level 109 mg/dL (70-99) Calcium Level 8.1 mg/dL (8.5-10.1) Total Bilirubin 0.3 mg/dL (0.2-1.0) Aspartate Amino Transf (AST/SGOT) 202 U/L (15-37) Alanine Aminotransferase (ALT/SGPT) 191 U/L (16-63) Alkaline Phosphatase 102 U/L (46-116) Total Protein 7.0 g/dL (6.4-8.2) Albumin 3.0 g/dL (3.4-5.0) Albumin/Globulin Ratio 0.8 (1.0-1.7) Ethyl Alcohol Level 324 mg/dL (0-10) VTE Prophylaxis Ordered VTE Prophylaxis Devices: No VTE Pharmacological Prophylaxi: Yes Assessment/Plan Assessment/Plan A/P: Acute encephalopathy - likely metabolic and toxic with alcohol intoxication, will hydrate. CIWA scale ETOH abuse - counseled on cessation, CIWA Macrocytosis - likely 2/2 ETOH abuse, will check B12 level Transaminitis - favoring an alcoholic hepatitis, will check lipase given his abdominal pain, abdominal imaging indicated given his persistent RLQ pain Abdominal pain - will check lipase given his alcoholic hepatitis. CT abdomen/pelvis for RLQ pain bipolar disorder with schizoaffective disorder - on saphris. will consult psych for further recommendations given his comcominant substance use disorder. PAT team as well for mental health with alcohol use H/o aspiration pna - s/p PEG Anterior cervical fusion - initially had aspiration pneumonia after this surgery, now s/p PEG s/p pacer due to arrhythmia - will interrogate device, trend troponins, maintain telemetry FEN - Will initiate TF once pancreatitis is ruled out, consult preventive maintenance coordinator PPX - lovenox, H2 jim FULL CODE Dispo - inpatient MESSI FARRIS MD Oct 29, 2019 07:51
[2019-10-29] MEDS ORDERED: IOHEXOL 300 MG/ML 100ML VIAL. IV ONE (08:30)
[2019-10-29] MEDS ORDERED: CARI1.5C PO (09:44)
--- NOTE | 2019-10-29 09:49 | RAD ---
CT ABD PELV W/ IV CONTRST ONLY History: pancreatitis. Also with RLQ pain, still has appendix Comparison: None. Technique: After administration of intravenous contrast, helical CT of the abdomen and pelvis was performed from the lung bases through the ischial tuberosities. Coronal and sagittal reconstructions were obtained. 75 mL of Omnipaque 300 were used. One or more of the following dose reduction techniques were utilized: Automated exposure control (AEC), Adjustment of mA and/or kV according to patient size, Use of iterative reconstruction technique such as ASiR, CT scan done according to ALARA and image gently/image wisely Abdomen Findings: The visualized lung bases are clear. Diffuse hepatic steatosis. Liver measures 21 cm craniocaudad. Gallbladder, pancreas, and bilateral adrenal glands are normal. Calcified splenic granulomas. Symmetric renal enhancement. There is no focal renal mass. There is no hydronephrosis. Percutaneous gastrostomy tube. The visualized loops of small bowel are normal. The visualized loops of large bowel are normal. There is no evidence of bowel obstruction. Appendix is normal. There is no free fluid. There is no mesenteric or retroperitoneal adenopathy. Moderate aortoiliac atherosclerotic disease. Pelvis Findings: Urinary bladder is normal. No pelvic free fluid. There is no pelvic or inguinal adenopathy. Degenerative changes of the spine. Small fat-containing left inguinal hernia. IMPRESSION: 1. No acute findings. No peripancreatic inflammation or fluid collection. Normal appendix. 2. Hepatomegaly and diffuse hepatic steatosis. Electronically signed by: Glenroy Gomez MD (10/29/2019 9:46 AM) [id number]
[2019-10-29 10:26] VITALS: BP 152/72
[2019-10-29] MEDS: DULoxetine HCL 30 MG CAPSULE.DR PEG SCH (11:14)
[2019-10-29] MEDS: THIAMINE 100 MG TABLET. PO SCH (11:14)
[2019-10-29] MEDS: MULTIVITAMIN with MINERAL TABLET. PO SCH (11:14)
[2019-10-29] MEDS: ASPIRIN 325 MG TABLET PO SCH (11:14)
[2019-10-29] MEDS: LANSOPRAZOLE 30 MG TAB.RAP.DR PEG SCH (11:14)
[2019-10-29] MEDS: FAMOTIDINE 20 MG/2 ML VIAL IVP SCH ×2 (11:14→21:15)
[2019-10-29] MEDS: GABAPENTIN 250 MG/5 ML ORAL SOLUTION. PEG SCH ×2 (11:15→21:16)
[2019-10-29] MEDS: BENZTROPINE MESYLATE 1 MG TABLET. PEG SCH ×2 (11:15→21:16)
[2019-10-29 14:32] VITALS: BP 159/74
[2019-10-29] MEDS: ENOXAPARIN 40 MG/0.4 ML SYRINGE. SQ SCH (16:40)
[2019-10-29 19:00] VITALS: BP 145/69
[2019-10-29] MEDS: ASENAPINE MALEATE SL SCH (21:00)
[2019-10-29 23:05] VITALS: BP 145/75
[2019-10-30 03:23] VITALS: BP 144/75
[2019-10-30 06:08] LABS: PROTHROMBIN TIME PATIENT 13.3 SEC (11.7-14.0)
[2019-10-30 06:32] LABS: ALBUMIN 2.7 g/dL (3.4-5.0); ALBUMIN/GLOBULIN RATIO 0.7 (1.0-1.7); CALCIUM 8.6 mg/dL (8.5-10.1); CREATININE 0.7 mg/dL (0.7-1.3); POTASSIUM 3.5 mmol/L (3.5-5.1); TOTAL BILIRUBIN 0.6 mg/dL (0.2-1.0); TOTAL PROTEIN 6.6 g/dL (6.4-8.2)
[2019-10-30 07:00] VITALS: BP 140/81
[2019-10-30] MEDS: BENZTROPINE MESYLATE 1 MG TABLET. PEG SCH ×2 (07:40→20:50)
[2019-10-30] MEDS: THIAMINE 100 MG TABLET. PO SCH (07:40)
[2019-10-30] MEDS: MULTIVITAMIN with MINERAL TABLET. PO SCH (07:40)
[2019-10-30] MEDS: ASPIRIN 325 MG TABLET PO SCH (07:40)
[2019-10-30] MEDS: FAMOTIDINE 20 MG/2 ML VIAL IVP SCH ×2 (07:41→20:50)
[2019-10-30] MEDS: DULoxetine HCL 30 MG CAPSULE.DR PEG SCH (07:41)
[2019-10-30] MEDS: LANSOPRAZOLE 30 MG TAB.RAP.DR PEG SCH (07:41)
[2019-10-30] MEDS: GABAPENTIN 250 MG/5 ML ORAL SOLUTION. PEG SCH ×2 (07:42→20:50)
[2019-10-30 10:44] VITALS: BP 140/69
[2019-10-30 14:43] VITALS: BP 162/77
[2019-10-30] MEDS: ENOXAPARIN 40 MG/0.4 ML SYRINGE. SQ SCH (15:18)
--- NOTE | 2019-10-30 15:34 | PDOC ---
GENERAL General: Patient examined chart reviewed today is hospital day 2 for this patient with longstanding alcoholism in remission for the last 5 years. He tells me that he was in rehab for quite some time 5 years ago and then in a penitentiary house for 2 years following that. He has had great success with multiple AA meetings a week. He has continued to attend AA via Zoom unfortunately had a relapse not sure why of his alcoholism was drinking mouthwash. He was brought to the emergency department with acute confusion found to have an alcohol level of 324. He is feeling a lot better this afternoon tells me he could use another dose of Ativan for his tremors. He has never had severe withdrawal in the past. He is willing to speak with social work on options for intensive outpatient treatment to maintain his sobriety. Hopefully another day or 2 and he will be able to discharge. Continue current management otherwise. Problems: (1) Alcohol intoxication delirium (2) Gastrostomy tube in place VITAL SIGNS Vital Signs/I&O: Vital Signs Date Time Temp Pulse Resp B/P (MAP) Pulse Ox O2 Delivery O2 Flow Rate FiO2 10/30/19 14:43 98.3 63 21 162/77 (105) 98 98.3 10/30/19 08:00 Room Air 2.0 I & O 10/29/19 10/29/19 10/30/19 15:00 23:00 07:00 Intake Total 800 ml 700 ml 200 ml Output Total 150 ml Balance 800 ml 550 ml 200 ml In general the patient is pleasant at baseline orientation in no acute distress HEENT exam is unremarkable for acute abnormality Chest is clear to auscultation Heart S1-S2 normal tachycardic no murmurs or gallops are noted Abdomen soft nontender nondistended no masses organomegaly noted Extremity exam is notable for some bruising otherwise unremarkable throughout ALLERGIES Allergies: Allergies Coded Allergies Type Severity Reaction Last Updated Verified Sulfa (Sulfonamide Antibiotics) Allergy Intermediate 11/17/15 Yes haloperidol Allergy Intermediate Unknown 01/10/19 Yes MEDS Medications: Current Medications Medications (Trade) Dose Ordered Sig/Christina Start Time Stop Time Status Last Admin Dose Admin Acetaminophen (Tylenol Supp) 650 mg PRN Q4HRS PRN 10/29/19 07:45 Acetaminophen (Tylenol) 650 mg PRN Q4HRS PRN 10/29/19 07:45 Aspirin (Rosana Aspirin) 325 mg DAILY 10/29/19 09:00 10/30/19 07:40 Benztropine Mesylate (Cogentin) 1 mg BID 10/29/19 09:00 10/30/19 07:40 Duloxetine HCl (Cymbalta) 60 mg DAILY 10/29/19 09:00 10/30/19 07:41 Enoxaparin Sodium (Lovenox 40mg Syringe) 40 mg Q24H 10/29/19 16:00 10/30/19 15:18 Famotidine (Pepcid Vial) 20 mg BID 10/29/19 09:00 10/30/19 07:41 Folic Acid (Folic Acid) 1 mg DAILY 11/03/19 09:00 Gabapentin (Neurontin Oral Soln) 600 mg BID 10/29/19 09:00 10/30/19 07:42 Iohexol (Omnipaque 300 Mg/ml) 75 ml 1X ONCE 10/29/19 08:30 10/29/19 08:31 DC 10/29/19 08:50 Lansoprazole (Prevacid) 30 mg DAILYAC 10/29/19 07:30 10/30/19 07:41 Lorazepam (Ativan Inj) 1 mg PRN Q1HR PRN 10/29/19 08:00 Lorazepam (Ativan) 1 mg PRN Q1HR PRN 10/29/19 08:00 10/30/19 15:17 Multivitamins (Thera M Plus) 1 tab DAILY 10/29/19 09:00 10/30/19 07:40 Non-Formulary Medication (Asenapine Maleate (Saphris)) 1 tab QHS 10/29/19 21:00 UNV Ondansetron HCl (Zofran) 4 mg PRN Q4HRS PRN 10/29/19 07:45 Thiamine Mononitrate (Vitamin B-1) 100 mg DAILY 10/29/19 09:00 10/30/19 07:40 Current Medications Medications (Trade) Dose Ordered Sig/Christina Route PRN Reason Start Time Stop Time Status Last Admin Dose Admin Enoxaparin Sodium (Lovenox 40mg Syringe) 40 mg Q24H SQ 10/29/19 16:00 10/30/19 15:18 LAB Lab: Laboratory Tests Test 10/29/19 15:55 10/30/19 05:00 Troponin I Quantitative < 0.017 ng/mL (0.000-0.055) Prothrombin Time 13.3 SEC (11.7-14.0) Prothrombin Time INR 1.1 (0.8-1.1) Sodium Level 141 mmol/L (136-145) Potassium Level 3.5 mmol/L (3.5-5.1) Chloride Level 103 mmol/L (98-107) Carbon Dioxide Level 29 mmol/L (21-32) Anion Gap 9 (6-14) Blood Urea Nitrogen 22 mg/dL (8-26) Creatinine 0.7 mg/dL (0.7-1.3) Estimated GFR (Cockcroft-Gault) 115.0 BUN/Creatinine Ratio 31 (6-20) H Glucose Level 162 mg/dL (70-99) H Calcium Level 8.6 mg/dL (8.5-10.1) Total Bilirubin 0.6 mg/dL (0.2-1.0) Aspartate Amino Transferase (AST) 140 U/L (15-37) H Alanine Aminotransferase (ALT) 157 U/L (16-63) H Alkaline Phosphatase 99 U/L (46-116) Total Protein 6.6 g/dL (6.4-8.2) Albumin 2.7 g/dL (3.4-5.0) L Albumin/Globulin Ratio 0.7 (1.0-1.7) L Laboratory Tests 10/30/19 05:00 ASSESSMENT & PLAN A&P Plan as noted above This note was created using [employer]ar[employer] and may have omissions and/or errors due to the nature of real-time voice research laboratory specialist. Justicifation of Admission Dx: Justifications for Admission: Justification of Admission Dx: Yes TESS HORTON MD Oct 30, 2019 15:33
--- NOTE | 2019-10-30 18:46 | PDOC1 ---
History & Psych Evaluation Date of Service: DOS: DATE: 10/30/19 TIME: 18:35 Source: Source: Caregiver, Chart review, Patient Identification: Identification He is a 58-year-old gentleman with history of schizoaffective disorder bipolar type. Chief Complaint: Chief Complaint Alcohol intoxication, altered mental status, psychiatric issues. History of Present Illness: HPI: He is a 58-year-old gentleman with history of schizoaffective disorder bipolar type admitted with alcohol intoxication and altered mental status. He is seen for initial psychiatric assessment. Upon interview he appears alert and oriented cooperative and interactive. States that he has history of schizoaffective disorder and heavy alcohol use. States, he does follow-up for his mental health at [facility]. He states, he has history of mood instability including irritability, anger, mood fluctuations, and hypomania. Additionally, he has history of auditory hallucinations. States, initially his auditory hallucinations used to be mean and command auditory hallucinations. However, now lately his auditory hallucinations are not command or mean instead they are shouting and screaming voices. States he is reasonably stable on medications prescribed from [facility]. He does have history of depression and anxiety which is reportedly in partial remission. He has history of heavy alcohol use. Not sure whether alcohol makes him depressed or for depression he takes alcohol. Reportedly compliant with his medications. Denies suicidal or homicidal thoughts. Denies auditory or visual hallucinations. No evidence of dimitri or hypomania at this point. Mental status is stable, he is oriented to all spheres and able to communicate well. Past Psychiatric History: Previously diagnosed with schizoaffective disorder bipolar type. He follows at [facility]. He has history of multiple hospital admissions including OSH. Reports previous history of suicidal ideation. Presently denies suicidal ideation Past Medical History: Please see medical chart for details Current Medications: Current Medications Current Medications Medications (Trade) Dose Ordered Sig/Christina Start Time Stop Time Status Last Admin Dose Admin Acetaminophen (Tylenol Supp) 650 mg PRN Q4HRS PRN 10/29/19 07:45 Acetaminophen (Tylenol) 650 mg PRN Q4HRS PRN 10/29/19 07:45 10/30/19 17:56 650 MG Aspirin (Rosana Aspirin) 325 mg DAILY 10/29/19 09:00 10/30/19 07:40 325 MG Benztropine Mesylate (Cogentin) 1 mg BID 10/29/19 09:00 10/30/19 07:40 1 MG Duloxetine HCl (Cymbalta) 60 mg DAILY 10/29/19 09:00 10/30/19 07:41 60 MG Enoxaparin Sodium (Lovenox 40mg Syringe) 40 mg Q24H 10/29/19 16:00 10/30/19 15:18 40 MG Famotidine (Pepcid Vial) 20 mg BID 10/29/19 09:00 10/30/19 07:41 20 MG Folic Acid (Folic Acid) 1 mg DAILY 11/03/19 09:00 Gabapentin (Neurontin Oral Soln) 600 mg BID 10/29/19 09:00 10/30/19 07:42 600 MG Iohexol (Omnipaque 300 Mg/ml) 75 ml 1X ONCE 10/29/19 08:30 10/29/19 08:31 DC 10/29/19 08:50 75 ML Lansoprazole (Prevacid) 30 mg DAILYAC 10/29/19 07:30 10/30/19 07:41 30 MG Lorazepam (Ativan Inj) 1 mg PRN Q1HR PRN 10/29/19 08:00 Lorazepam (Ativan) 1 mg PRN Q1HR PRN 10/29/19 08:00 10/30/19 15:17 1 MG Multivitamins (Thera M Plus) 1 tab DAILY 10/29/19 09:00 10/30/19 07:40 1 TAB Non-Formulary Medication (Asenapine Maleate (Saphris)) 1 tab QHS 10/29/19 21:00 UNV Ondansetron HCl (Zofran) 4 mg PRN Q4HRS PRN 10/29/19 07:45 Thiamine Mononitrate (Vitamin B-1) 100 mg DAILY 10/29/19 09:00 10/30/19 07:40 100 MG Allergies: Allergies: Coded Allergies: Sulfa (Sulfonamide Antibiotics) (Verified Allergy, Intermediate, 11/17/15) PATIENT STATES THAT THE REACTION WAS A LONG TIME AGO AND HE DOES NOT REMEMBER THE REACTION. haloperidol (Verified Allergy, Intermediate, Unknown, 01/10/19) Mental Status Examination: Mental Status Examination gentleman appears as a stated age. He is cooperative and interactive Alert and oriented Thought processes linear and goal-directed. Denies auditory or visual hallucinations. Denies suicidal or homicidal thoughts. Mood is stable Affect is constricted Insight is fair Judgment fair Impulse control fair Attention span and concentration fair Recent and remote memory intact. ROS: 14 point review of system is otherwise negative except for as stated above. Physical Exam: Refer to Physician's note. MACHINE TAPER: No focal deficit MSK: No EPS, TDK, or abnormal involuntary movements Vitals: Vitals Vital Signs Date Time Temp Pulse Resp B/P (MAP) Pulse Ox O2 Delivery O2 Flow Rate FiO2 10/30/19 14:43 98.3 63 21 162/77 (105) 98 98.3 10/30/19 08:00 Room Air 2.0 Labs: Labs Laboratory Tests Test 10/29/19 02:35 10/29/19 02:45 10/29/19 11:53 10/29/19 15:55 Urine Collection Type Unknown Urine Color Juani Urine Clarity Clear Urine pH 5.5 (<5.0-8.0) Urine Specific [place] >=1.030 (1.000-1.030) Urine Protein 100 mg/dL (NEG-TRACE) Urine Glucose (UA) Negative mg/dL (NEG) Urine Ketones (Stick) 15 mg/dL (NEG) Urine Blood Trace (NEG) Urine Nitrite Negative (NEG) Urine Bilirubin Negative (NEG) Urine Urobilinogen Dipstick 1.0 mg/dL (0.2 mg/dL) Urine Leukocyte Esterase Negative (NEG) Urine RBC 1-2 /HPF (0-2) Urine WBC Occ /HPF (0-4) Urine Squamous Epithelial Cells Few /LPF Urine Amorphous Sediment Present /HPF Urine Bacteria 0 /HPF (0-FEW) Urine Hyaline Casts Few /HPF Urine Mucus Mod /LPF Urine Opiates Screen Neg (NEG) Urine Methadone Screen Neg (NEG) Urine Barbiturates Neg (NEG) Urine Phencyclidine Screen Neg (NEG) Urine Amphetamine/Methamphetamine Neg (NEG) Urine Benzodiazepines Screen Neg (NEG) Urine Cocaine Screen Neg (NEG) Urine Cannabinoids Screen Neg (NEG) Urine Ethyl Alcohol Pos (NEG) White Blood Count 10.1 x10^3/uL (4.0-11.0) Red Blood Count 4.11 x10^6/uL (4.30-5.70) Hemoglobin 14.4 g/dL (13.0-17.5) Hematocrit 41.6 % (39.0-53.0) Mean Corpuscular Volume 101 fL (79-100) Mean Corpuscular Hemoglobin 35 pg (25-35) Mean Corpuscular Hemoglobin Concent 35 g/dL (31-37) Red Cell Distribution Width 14.5 % (11.5-14.5) Platelet Count 174 x10^3/uL (140-400) Neutrophils (%) (Auto) 79 % (31-73) Lymphocytes (%) (Auto) 11 % (24-48) Monocytes (%) (Auto) 9 % (0-9) Eosinophils (%) (Auto) 0 % (0-3) Basophils (%) (Auto) 1 % (0-3) Neutrophils # (Auto) 8.0 x10^3/uL (1.8-7.7) Lymphocytes # (Auto) 1.1 x10^3/uL (1.0-4.8) Monocytes # (Auto) 0.9 x10^3/uL (0.0-1.1) Eosinophils # (Auto) 0.0 x10^3/uL (0.0-0.7) Basophils # (Auto) 0.1 x10^3/uL (0.0-0.2) Sodium Level 145 mmol/L (136-145) Potassium Level 3.5 mmol/L (3.5-5.1) Chloride Level 106 mmol/L (98-107) Carbon Dioxide Level 28 mmol/L (21-32) Anion Gap 11 (6-14) Blood Urea Nitrogen 18 mg/dL (8-26) Creatinine 0.7 mg/dL (0.7-1.3) Estimated GFR (Cockcroft-Gault) 115.0 BUN/Creatinine Ratio 26 (6-20) Glucose Level 109 mg/dL (70-99) Calcium Level 8.1 mg/dL (8.5-10.1) Magnesium Level 2.3 mg/dL (1.8-2.4) Total Bilirubin 0.3 mg/dL (0.2-1.0) Aspartate Amino Transf (AST/SGOT) 202 U/L (15-37) Alanine Aminotransferase (ALT/SGPT) 191 U/L (16-63) Alkaline Phosphatase 102 U/L (46-116) Total Protein 7.0 g/dL (6.4-8.2) Albumin 3.0 g/dL (3.4-5.0) Albumin/Globulin Ratio 0.8 (1.0-1.7) Lipase 202 U/L (73-393) Ethyl Alcohol Level 324 mg/dL (0-10) Troponin I Quantitative < 0.017 ng/mL (0.000-0.055) < 0.017 ng/mL (0.000-0.055) Test 10/30/19 05:00 Prothrombin Time 13.3 SEC (11.7-14.0) Prothromb Time International Ratio 1.1 (0.8-1.1) Sodium Level 141 mmol/L (136-145) Potassium Level 3.5 mmol/L (3.5-5.1) Chloride Level 103 mmol/L (98-107) Carbon Dioxide Level 29 mmol/L (21-32) Anion Gap 9 (6-14) Blood Urea Nitrogen 22 mg/dL (8-26) Creatinine 0.7 mg/dL (0.7-1.3) Estimated GFR (Cockcroft-Gault) 115.0 BUN/Creatinine Ratio 31 (6-20) Glucose Level 162 mg/dL (70-99) Calcium Level 8.6 mg/dL (8.5-10.1) Total Bilirubin 0.6 mg/dL (0.2-1.0) Aspartate Amino Transf (AST/SGOT) 140 U/L (15-37) Alanine Aminotransferase (ALT/SGPT) 157 U/L (16-63) Alkaline Phosphatase 99 U/L (46-116) Total Protein 6.6 g/dL (6.4-8.2) Albumin 2.7 g/dL (3.4-5.0) Albumin/Globulin Ratio 0.7 (1.0-1.7) Laboratory Tests Test 10/30/19 05:00 Prothrombin Time 13.3 SEC (11.7-14.0) Prothromb Time International Ratio 1.1 (0.8-1.1) Sodium Level 141 mmol/L (136-145) Potassium Level 3.5 mmol/L (3.5-5.1) Chloride Level 103 mmol/L (98-107) Carbon Dioxide Level 29 mmol/L (21-32) Anion Gap 9 (6-14) Blood Urea Nitrogen 22 mg/dL (8-26) Creatinine 0.7 mg/dL (0.7-1.3) Estimated GFR (Cockcroft-Gault) 115.0 BUN/Creatinine Ratio 31 (6-20) Glucose Level 162 mg/dL (70-99) Calcium Level 8.6 mg/dL (8.5-10.1) Total Bilirubin 0.6 mg/dL (0.2-1.0) Aspartate Amino Transf (AST/SGOT) 140 U/L (15-37) Alanine Aminotransferase (ALT/SGPT) 157 U/L (16-63) Alkaline Phosphatase 99 U/L (46-116) Total Protein 6.6 g/dL (6.4-8.2) Albumin 2.7 g/dL (3.4-5.0) Albumin/Globulin Ratio 0.7 (1.0-1.7) Diagnosis: Diagnosis: Alcohol intoxication in context of alcohol use disorder. Alcohol use disorder, recurrent, severe. Schizoaffective disorder, bipolar type Resolving delirium Assessment: gentleman admitted with alcohol intoxication likely alcohol withdrawal delirium. Additionally he has schizoaffective disorder bipolar type which appears to be stable on outpatient psychotropic medications prescribed through [facility]. He can be restarted on his outpatient psychotropic medications. Continue CIWA for alcohol withdrawal. He is already on gabapentin 600 mg twice a day which can be continued. Plan: Continue medications as prescribed. Restart outpatient psychotropic medications. Highly recommending alcohol rehab. Recommending RADAC screen in case he is in agreement. Educated regarding adverse drug effects of alcohol on physical and mental health. Psychoeducation provided. Supportive psychotherapy provided. Risk, benefits, alternatives of the treatment are discussed. He is in agreement with plan and voiced understanding. Thank you for involving inpatient care SYL WOODS MD Oct 30, 2019 18:46
[2019-10-30 19:00] VITALS: BP 162/78
[2019-10-30] MEDS: ASENAPINE MALEATE SL SCH (20:50)
[2019-10-30 23:18] VITALS: BP 150/75
[2019-10-31 03:10] VITALS: BP 148/84
[2019-10-31 07:00] VITALS: BP 140/87
[2019-10-31 07:56] LABS: BASO % 0 % (0-3); EOS # 0.1 x10^3/uL (0.0-0.7); EOS % 2 % (0-3); HEMATOCRIT 43.8 % (39.0-53.0); HEMOGLOBIN 14.8 g/dL (13.0-17.5); LYMPH # 1.2 x10^3/uL (1.0-4.8); LYMPH % 21 % (24-48); MEAN CORPUSCULAR HEMOGLOBIN 35 pg (25-35); MEAN CORPUSCULAR HGB CONC 34 g/dL (31-37); MEAN CORPUSCULAR VOLUME 103 fL (79-100); MONO # 0.4 x10^3/uL (0.0-1.1); MONO % 7 % (0-9); NEUT % 70 % (31-73); PLATELET COUNT 123 x10^3/uL (140-400); RED BLOOD COUNT 4.25 x10^6/uL (4.30-5.70); RED CELL DISTRIBUTION WIDTH 14.6 % (11.5-14.5); WHITE BLOOD COUNT 5.7 x10^3/uL (4.0-11.0)
[2019-10-31 08:39] LABS: ALBUMIN 2.6 g/dL (3.4-5.0); ALBUMIN/GLOBULIN RATIO 0.7 (1.0-1.7); CALCIUM 8.1 mg/dL (8.5-10.1); CREATININE 0.7 mg/dL (0.7-1.3); POTASSIUM 3.4 mmol/L (3.5-5.1); TOTAL BILIRUBIN 0.6 mg/dL (0.2-1.0); TOTAL PROTEIN 6.5 g/dL (6.4-8.2)
[2019-10-31] MEDS: ASPIRIN 325 MG TABLET PO SCH (08:45)
[2019-10-31] MEDS: LANSOPRAZOLE 30 MG TAB.RAP.DR PEG SCH (08:45)
[2019-10-31] MEDS: THIAMINE 100 MG TABLET. PO SCH (08:45)
[2019-10-31] MEDS: BENZTROPINE MESYLATE 1 MG TABLET. PEG SCH (08:45)
[2019-10-31] MEDS: DULoxetine HCL 30 MG CAPSULE.DR PEG SCH (08:45)
[2019-10-31] MEDS: MULTIVITAMIN with MINERAL TABLET. PO SCH (08:46)
[2019-10-31] MEDS: GABAPENTIN 250 MG/5 ML ORAL SOLUTION. PEG SCH (08:46)
[2019-10-31] MEDS: FAMOTIDINE 20 MG/2 ML VIAL IVP SCH (08:47)
[2019-10-31 10:56] VITALS: BP 142/82
--- NOTE | 2019-10-31 12:02 | PDOC ---
[employer] PROGRESS NOTE Date of Service DOS: DATE: 10/31/19 TIME: 12:01 Chief Complaint Chief Complaint Alcohol withdrawal History of Present Illness History of Present Illness 10/31/2019 Patient seen and examined He is at his baseline He is requesting discharge We will go ahead and discharge Chart reviewed Discussed with case management Discussed with RN Vitals/I&O Vitals/I&O: Vital Signs Date Time Temp Pulse Resp B/P (MAP) Pulse Ox O2 Delivery O2 Flow Rate FiO2 10/31/19 10:56 98.0 71 20 142/82 (102) 95 Room Air 98.0 10/30/19 08:00 2.0 I & O 10/30/19 10/30/19 10/31/19 15:00 23:00 07:00 Intake Total 1105 ml 800 ml Output Total 150 ml Balance -150 ml 1105 ml 800 ml Physical Exam General: Alert, Cooperative, mild distress Lungs: Clear Abdomen: Normal bowel sounds, Soft, No hepatosplenomegaly, No masses, Other (RLQ in place, Leon button PEG in place) Extremities: No clubbing, No cyanosis, No edema, Normal pulses, No tenderness/swelling Skin: No rashes, No breakdown, No significant lesion Labs Labs: Laboratory Tests Test 10/31/19 06:30 White Blood Count 5.7 x10^3/uL (4.0-11.0) Red Blood Count 4.25 x10^6/uL (4.30-5.70) Hemoglobin 14.8 g/dL (13.0-17.5) Hematocrit 43.8 % (39.0-53.0) Mean Corpuscular Volume 103 fL (79-100) Mean Corpuscular Hemoglobin 35 pg (25-35) Mean Corpuscular Hemoglobin Concent 34 g/dL (31-37) Red Cell Distribution Width 14.6 % (11.5-14.5) Platelet Count 123 x10^3/uL (140-400) Neutrophils (%) (Auto) 70 % (31-73) Lymphocytes (%) (Auto) 21 % (24-48) Monocytes (%) (Auto) 7 % (0-9) Eosinophils (%) (Auto) 2 % (0-3) Basophils (%) (Auto) 0 % (0-3) Neutrophils # (Auto) 4.0 x10^3/uL (1.8-7.7) Lymphocytes # (Auto) 1.2 x10^3/uL (1.0-4.8) Monocytes # (Auto) 0.4 x10^3/uL (0.0-1.1) Eosinophils # (Auto) 0.1 x10^3/uL (0.0-0.7) Basophils # (Auto) 0.0 x10^3/uL (0.0-0.2) Sodium Level 139 mmol/L (136-145) Potassium Level 3.4 mmol/L (3.5-5.1) Chloride Level 102 mmol/L (98-107) Carbon Dioxide Level 27 mmol/L (21-32) Anion Gap 10 (6-14) Blood Urea Nitrogen 16 mg/dL (8-26) Creatinine 0.7 mg/dL (0.7-1.3) Estimated GFR (Cockcroft-Gault) 115.0 BUN/Creatinine Ratio 23 (6-20) Glucose Level 95 mg/dL (70-99) Calcium Level 8.1 mg/dL (8.5-10.1) Total Bilirubin 0.6 mg/dL (0.2-1.0) Aspartate Amino Transf (AST/SGOT) 98 U/L (15-37) Alanine Aminotransferase (ALT/SGPT) 137 U/L (16-63) Alkaline Phosphatase 106 U/L (46-116) Total Protein 6.5 g/dL (6.4-8.2) Albumin 2.6 g/dL (3.4-5.0) Albumin/Globulin Ratio 0.7 (1.0-1.7) Assessment and Plan Assessmemt and Plan Resolving alcohol withdrawal Plan Discharge Comment Review of Relevant I have reviewed the following items fatimah (where applicable) has been applied. RAFI THOMPSON III DO Oct 31, 2019 12:02
--- NOTE | 2019-10-31 12:11 | DS ---
DATE OF DISCHARGE: 10/31/2019 ADMISSION DIAGNOSES: 1. Acute encephalopathy. 2. Alcohol withdrawal. DISCHARGE DIAGNOSES: 1. Resolving alcohol withdrawal. 2. Resolving encephalopathy. 3. History of atrial fibrillation. 4. Hypertension. 5. Gastroesophageal reflux disease. 6. Anxiety. 7. Addiction. 8. Bipolar. CONSULTS: None. PROCEDURES: None. HOSPITAL COURSE: The patient is a pleasant middle-aged male who drinks too much basically presented with metabolic encephalopathy and alcohol withdrawal. He was admitted. We did alcohol withdrawal protocol. Today, I saw and examined him. He is at his baseline. Heart tones are normal. Lungs are clear. He is alert and oriented, wants to go home. We plan to discharge. DISPOSITION: Home. ACTIVITY: As tolerated. DIET: Low sodium. MEDICATIONS: Please see the MRAD. TOTAL TIME: 34 minutes. LAITHL Charmaine THOMPSON DO DR: LUZ/maty JOB#: [id number] / [id number]
--- NOTE | 2019-10-31 12:40 | NUR ---
Discharge Note: BHAVANA CRISOSTOMO Discharge instructions and discharge home medications reviewed with Patient and a copy given. All questions have been answered and understanding verbalized. The following instructions and handouts were given: alcohol withdrawal Patient discharged to home with self care via ambulatory
[2019-11-03] MEDS ORDERED: FOLIC ACID 1 MG TABLET. PO SCH (09:00)
== END 2019-10-31 12:45 | disposition home or self-care (01) | DRG 896 ==
LOC: ER 01:14 → ED HOLD 03:54 → 2 SOUTH 04:33 → OBSVTOIN 08:33
PROVIDERS: ADMIT Internal Medicine; ATTEND Internal Medicine
DX: F10.231 Alcohol dependence with withdrawal delirium (principal); G93.41 Metabolic encephalopathy; F10.229 Alcohol dependence with intoxication, unspecified; D75.89 Other specified diseases of blood and blood-forming organs; F17.210 Nicotine dependence, cigarettes, uncomplicated; F25.0 Schizoaffective disorder, bipolar type; F41.9 Anxiety disorder, unspecified; I10 Essential (primary) hypertension; F10.239 Alcohol dependence with withdrawal, unspecified; I48.91 Unspecified atrial fibrillation; K21.9 Gastro-esophageal reflux disease without esophagitis; K59.00 Constipation, unspecified; Y90.8 Blood alcohol level of 240 mg/100 ml or more; Z82.49 Family history of ischemic heart disease and other diseases of the circulatory system; Z93.1 Gastrostomy status; F32.9 Major depressive disorder, single episode, unspecified; Z88.2 Allergy status to sulfonamides; Z88.8 Allergy status to other drugs, medicaments and biological substances; Z71.41 Alcohol abuse counseling and surveillance of alcoholic; R74.0 Nonspecific elevation of levels of transaminase and lactic acid dehydrogenase [LDH]
CPT/HCPCS: 36415; 74177; 80053; 80307; 81001; 83690; 83735; 84484; 85025; 85610; 96374; 99285; G0378; G0379; G0480; J1650; J2060; J3490; Q9967

== ENCOUNTER 2019-11-19 09:00 | Emergency (ER) | payer MEDICARE ==
[~2019-11-19] VITALS: Ht 177.8 cm; Wt 100.0 kg
[~2019-11-19 09:00] MED LIST changes: +CARI1.5C PO
[2019-11-19 09:59] LABS: BASO % 0 % (0-3); EOS % 0 % (0-3); HEMATOCRIT 43.1 % (39.0-53.0); HEMOGLOBIN 14.8 g/dL (13.0-17.5); LYMPH # 1.2 x10^3/uL (1.0-4.8); LYMPH % 17 % (24-48); MEAN CORPUSCULAR HEMOGLOBIN 35 pg (25-35); MEAN CORPUSCULAR HGB CONC 34 g/dL (31-37); MEAN CORPUSCULAR VOLUME 103 fL (79-100); MONO # 0.8 x10^3/uL (0.0-1.1); MONO % 11 % (0-9); NEUT % 71 % (31-73); PLATELET COUNT 203 x10^3/uL (140-400); RED BLOOD COUNT 4.21 x10^6/uL (4.30-5.70); RED CELL DISTRIBUTION WIDTH 15.2 % (11.5-14.5)
--- NOTE | 2019-11-19 10:01 | PHYS DOC ---
Past Medical History Past Medical History: Arrhythmia, Bipolar, Heart Disease Additional Past Medical Histor: ASPIRATION PNA AFTER SX, SCHIZO-AFFECTIVE DISORDER, FEEDING TUBE Past Surgical History: Pacemaker Additional Past Surgical Histo: G-tube placement, cervical surgery Smoking Status: Current Every Day Smoker Alcohol Use: Heavy Additional Information: PATIENT WAS SOBER FOR 5 YEARS AND THEN ABOUT A MONTH AGO PATIENT STARTED DRINKING 1 PINT OF VODKA A DAY. PATIENT IS HERE FOR DETOX. Drug Use: None General Adult EDM: Chief Complaint: WITHDRAWL HPI: HPI: Patient is a 59 year old male with a history of mental delay and alcohol abuse who presents to the Emergency Room complaining of alcohol withdrawal. Patient states his last drink was 11 hours ago. He is have tremors. He has a history of severe withdrawal with seizures leading to pneumonia. Patient states he needs help with detox. Denies any other symptoms at this time. Review of Systems: Review of Systems: General: Denies fever, chills, sweats, fatigue Eyes: Denies drainage, blurred vision, eye redness HENT: Denies rhinorrhea, sore throat, earache Respiratory: Denies cough, shortness of breath, wheezing Cardiac: Denies edema, palpitations, chest pain GI: Denies abdominal pain, Nausea, vomiting MSK: Denies back pain, neck pain Skin: Denies rash, jaundice Neuro: Denies headache, dizziness reports tremors Psychiatric: Denies SI/HI Heart Score: Risk Factors: Risk Factors: DM, Current or recent (<one month) smoker, HTN, HLP, family history of CAD, obesity. Risk Scores: Score 0 - 3: 2.5% MACE over next 6 weeks - Discharge Home Score 4 - 6: 20.3% MACE over next 6 weeks - Admit for Clinical Observation Score 7 - 10: 72.7% MACE over next 6 weeks - Early Invasive Strategies Allergies: Allergies: Allergies Coded Allergies Type Severity Reaction Last Updated Verified Sulfa (Sulfonamide Antibiotics) Allergy Intermediate 11/17/15 Yes haloperidol Allergy Intermediate Unknown 01/10/19 Yes Physical Exam: PE: General: Awake, alert, NAD. Well Nourished, well hydrated. Cooperative HEENT: Atraumatic, EOMI, PERRL, airway patent, moist oral mucosa Neck: Supple, trachea midline Respiratory: CTA bilaterally, normal effort, no wheezing/crackles CV: RRR, no murmur, cap refill <2 GI: Soft, nondistended, nontender, no masses MSK: No obvious deformities Skin: Warm, dry, intact Neuro: A&O x3, speech NL, sensory and motor grossly intact, no focal deficits Psych: Normal affect, normal mood, not suicidal or homicidal Current Patient Data: Vital Signs: Vital Signs Date Time Temp Pulse Resp B/P (MAP) Pulse Ox O2 Delivery O2 Flow Rate FiO2 11/19/19 09:20 98.3 20 154/83 (106) Room Air 98.3 EKG: EKG: [] Radiology/Procedures: Radiology/Procedures: [] Course & Med Decision Making: Course & Med Decision Making Pertinent Labs and Imaging studies reviewed. (See chart for details) Patient is a 59-year-old male with past medical history of alcohol abuse who presents to the emergency room requesting help with detox. His last drink was 10-12 hours ago. At this time he has mild tremors but otherwise a normal exam. His vitals are normal. Basic labs, COVID swab for possible detox center, and alcohol level were ordered. Patient was given an initial dose of librium in the ER. Discussed his care with his roommate per his permission. His roommate is willing to give him his librium scheduled and bring him back if his symptoms worsen. Patient's test results and vitals while in the ED were fully reviewed and discussed with the patient. Patient is stable and at this time does not need admission to the hospital. We have discussed strict return precautions and the importance of following up with their Primary Care Physician. Patient stated understanding and was given an opportunity to ask any questions. Patient is in agreement with plan. Magalis Disclaimer: Magalis Disclaimer: This electronic medical record was generated, in whole or in part, using a voice recognition dictation system. Departure Departure Impression: Primary Impression: Alcohol abuse Disposition: HOME, SELF-CARE Condition: STABLE Referrals: GISELLE ROLDAN MD (PCP) Patient Instructions: Alcohol Withdrawal, [id number] Scripts Chlordiazepoxide Hcl (CHLORDIAZEPOXIDE HCL) 25 Mg Capsule 25 MG PO Q8HRS for 5 Days, #15 CAP Prov: KENNA CULVER MD 11/19/19 Justicifation of Admission Dx: Justifications for Admission: Justification of Admission Dx: N/A KENNA CULVER MD Nov 19, 2019 10:01
[2019-11-19 10:09] LABS: CALCIUM 8.4 mg/dL (8.5-10.1); CREATININE 0.5 mg/dL (0.7-1.3); POTASSIUM 3.7 mmol/L (3.5-5.1)
[2019-11-19 10:13] LABS: ALBUMIN/GLOBULIN RATIO 0.7 (1.0-1.7); TOTAL BILIRUBIN 0.3 mg/dL (0.2-1.0); TOTAL PROTEIN 7.1 g/dL (6.4-8.2)
[2019-11-19 10:13] LABS: BILIRUBIN,URINE NEGATIVE (NEG); CLARITY,URINE CLEAR; COLOR,URINE YELLOW; NITRITE,URINE NEGATIVE (NEG); PH,URINE 6.5 (<5.0-8.0); PROTEIN,URINE NEGATIVE (NEG-TRACE); UROBILINOGEN,URINE 0.2 mg/dL (0.2 mg/dL)
[2019-11-19 10:18] LABS: BARBITURATES NEG (NEG); BENZODIAZEPINES NEG (NEG); CANNABINOIDS NEG (NEG); COCAINE NEG (NEG); METHADONE NEG (NEG); OPIATES NEG (NEG); PHENCYCLIDINE NEG (NEG)
[2019-11-19 10:20] LABS: AMPHETAMINE/METHAMPHETAMINE NEG (NEG); BACTERIA,URINE 0 /HPF (0-FEW); RBC,URINE 0 /HPF (0-2); SQUAMOUS EPITHELIAL CELL,UR OCC /LPF; WBC,URINE RARE /HPF (0-4)
[2019-11-19] MEDS ORDERED: chlordiazePOXIDE HCL 25 MG CAPSULE PO ONE (10:45)
[2019-11-19 11:12] VITALS: BP 120/81
[2019-11-19] MEDS ORDERED: CHLO25CA9 PO (11:37)
== END 2019-11-19 12:01 | disposition home or self-care (01) ==
LOC: ER 09:00
DX: F10.239 Alcohol dependence with withdrawal, unspecified (principal); Y90.7 Blood alcohol level of 200-239 mg/100 ml; R25.1 Tremor, unspecified; F31.9 Bipolar disorder, unspecified; F25.9 Schizoaffective disorder, unspecified; F17.200 Nicotine dependence, unspecified, uncomplicated; Z86.79 Personal history of other diseases of the circulatory system; Z95.0 Presence of cardiac pacemaker
CPT/HCPCS: 36415; 80053; 80307; 81001; 85025; 99284; G0480

== ENCOUNTER 2020-11-03 18:35 | Inpatient (IN) | payer MEDICARE ==
[~2020-11-03] VITALS: Ht 177.8 cm; Wt 70.0 kg
[~2020-11-03 18:35] MED LIST changes: +CHLO25CA9 PO; -CLIN300C8 PO; +CLIN300C9 PO
--- NOTE | 2020-11-03 18:49 | ED.ADGEN ---
Past Medical History Past Medical History: Arrhythmia, Bipolar, Heart Disease Additional Past Medical Histor: ASPIRATION PNA AFTER SX, SCHIZO-AFFECTIVE DISORDER, FEEDING TUBE Past Surgical History: Pacemaker Additional Past Surgical Histo: G-tube placement, cervical surgery Smoking Status: Current Every Day Smoker Alcohol Use: Heavy Drug Use: None General Adult EDM: Chief Complaint: SUICDAL IDEATION HPI: HPI: Patient is a 59 year old male coming in via EMS from [facility]. Patient states that earlier today he called the suicide hotline and they drove him to [facility]. Patient states he has a plan to "take a bunch of pills at home" but denies any actual ingestions. Patient states he has a history of alcohol use and drinks 2 large cans of beer a day, patient also states that he has a history of alcohol withdrawal with seizures. Last alcohol was 2 beers about 6 hours prior to arrival, at noon. Patient denies any recent illness. Has had a [employer] Covid vaccine. Patient has a history of a neck surgery that resulted in dysphagia and is unable to tolerate solid foods, has a Leon button for the past 6 years. Review of Systems: Review of Systems: All other systems within normal limits except for as noted in the HPI Current Medications: Current Medications Medications (Trade) Dose Ordered Sig/Christina Start Time Stop Time Status Last Admin Dose Admin Acetaminophen (Tylenol) 650 mg PRN Q4HRS PRN 11/03/20 21:15 11/04/20 21:14 Clonidine HCl (Catapres) 0.1 mg PRN Q1HR PRN 11/03/20 20:45 Diphenhydramine HCl (Benadryl) 25 mg PRN Q15MIN PRN 11/03/20 20:45 Haloperidol Lactate (Haldol Inj) 5 mg PRN Q4HRS PRN 11/03/20 20:45 UNV Lorazepam (Ativan Inj) 4 mg PRN Q1HR PRN 11/03/20 20:45 Lorazepam (Ativan) 2 mg Q6H 11/03/20 21:00 11/05/20 03:01 11/04/20 03:25 2 MG Morphine Sulfate (Morphine Sulfate) 2 mg PRN Q2HR PRN 11/03/20 21:15 11/04/20 21:14 Nicotine (Nicoderm Cq 21mg) 1 patch DAILY 11/03/20 22:00 Ondansetron HCl (Zofran) 4 mg PRN Q8HRS PRN 11/03/20 21:15 11/04/20 21:14 Allergies: Allergies: Allergies Coded Allergies Type Severity Reaction Last Updated Verified Sulfa (Sulfonamide Antibiotics) Allergy Intermediate 11/17/15 Yes haloperidol Allergy Intermediate 11/03/20 Yes Physical Exam: PE: Constitutional: Well developed, well nourished, no acute distress, non-toxic appearance. [] HENT: Normocephalic, atraumatic, bilateral external ears normal, nose normal. [] Eyes: PERRLA, conjunctiva normal, no discharge. [] Neck: No rigidity, supple, no stridor. [] Cardiovascular: Regular rate and rhythm, brisk cap refill [] Lungs & Thorax: Non labored symmetric respirations, no tachypnea or respiratory distress [] Abdomen: Soft, nondistended, Leon button in place. Skin: Warm, dry, no erythema, no rash. [] Back: Unremarkable Extremities: No deformities, range of motion grossly intact, no lower extremity edema [] Neurologic: Alert and oriented X 3, no focal deficits noted. [] Psychologic: Affect normal, judgement normal, mood normal. [] Current Patient Data: Labs: Laboratory Tests Test 11/03/20 18:50 11/03/20 19:09 White Blood Count 6.2 x10^3/uL (4.0-11.0) Red Blood Count 3.53 x10^6/uL (4.30-5.70) L Hemoglobin 12.9 g/dL (13.0-17.5) L Hematocrit 36.9 % (39.0-53.0) L Mean Corpuscular Volume 104 fL (79-100) H Mean Corpuscular Hemoglobin 37 pg (25-35) H Mean Corpuscular Hemoglobin Concent 35 g/dL (31-37) Red Cell Distribution Width 16.4 % (11.5-14.5) H Platelet Count 139 x10^3/uL (140-400) L Neutrophils (%) (Auto) 52 % (31-73) Lymphocytes (%) (Auto) 37 % (24-48) Monocytes (%) (Auto) 9 % (0-9) Eosinophils (%) (Auto) 1 % (0-3) Basophils (%) (Auto) 2 % (0-3) Neutrophils # (Auto) 3.2 x10^3/uL (1.8-7.7) Lymphocytes # (Auto) 2.3 x10^3/uL (1.0-4.8) Monocytes # (Auto) 0.6 x10^3/uL (0.0-1.1) Eosinophils # (Auto) 0.1 x10^3/uL (0.0-0.7) Basophils # (Auto) 0.1 x10^3/uL (0.0-0.2) Sodium Level 134 mmol/L (136-145) L Potassium Level 3.7 mmol/L (3.5-5.1) Chloride Level 98 mmol/L (98-107) Carbon Dioxide Level 26 mmol/L (21-32) Anion Gap 10 (6-14) Blood Urea Nitrogen 8 mg/dL (8-26) Creatinine 0.7 mg/dL (0.7-1.3) Estimated GFR (Cockcroft-Gault) 114.6 BUN/Creatinine Ratio 11 (6-20) Glucose Level 75 mg/dL (70-99) Calcium Level 8.1 mg/dL (8.5-10.1) L Magnesium Level 2.3 mg/dL (1.8-2.4) Total Bilirubin 0.3 mg/dL (0.2-1.0) Aspartate Amino Transferase (AST) 29 U/L (15-37) Alanine Aminotransferase (ALT) 28 U/L (16-63) Alkaline Phosphatase 76 U/L (46-116) Troponin I Quantitative < 0.017 ng/mL (0.000-0.055) OR-Pjs-K-Type Natriuretic Peptide 347 pg/mL (0-124) H Total Protein 6.6 g/dL (6.4-8.2) Albumin 2.6 g/dL (3.4-5.0) L Albumin/Globulin Ratio 0.7 (1.0-1.7) L Ethyl Alcohol Level 211 mg/dL (0-10) H SARS-CoV-2 Antigen (Rapid) Negative (NEGATIVE) Laboratory Tests 11/03/20 18:50 Laboratory Tests 11/03/20 18:50 Vital Signs: Vital Signs Date Time Temp Pulse Resp B/P (MAP) Pulse Ox O2 Delivery O2 Flow Rate FiO2 11/03/20 22:30 96 15 103/65 (78) 93 Room Air 11/03/20 18:40 98.9 98.9 EKG: EKG: Sinus rhythm, heart rate 90 beats minute, normal axis, no ST elevation or depression, no ectopy. Normal intervals. [] Heart Score: C/O Chest Pain: Yes HEART Score for Chest Pain: HEART Score for Chest Pain Response (Comments) Value History Slighlty/Non-Suspicious 0 ECG Normal 0 Age >45 - < 65 1 Risk Factors 1 or 2 Risk Factors 1 Troponin < Normal Limit 0 Total 2 Risk Factors: Risk Factors: DM, Current or recent (<one month) smoker, HTN, HLP, family history of CAD, obesity. Risk Scores: Score 0 - 3: 2.5% MACE over next 6 weeks - Discharge Home Score 4 - 6: 20.3% MACE over next 6 weeks - Admit for Clinical Observation Score 7 - 10: 72.7% MACE over next 6 weeks - Early Invasive Strategies Radiology/Procedures: Radiology/Procedures: [facility] [address] [place] [address] IMAGING REPORT Signed PATIENT: BHAVANA CRISOSTOMO AACCOUNT: [id number] : 1960 LOCATION: ER AGE: 59 SEX: M EXAM STATUS: PRE ER ORD. PHYSICIAN: RAHEEM TORRES MD REASON: chest pain PROCEDURE: CHEST AP ONLY EXAM: CHEST 1 VIEW History: Chest pain COMPARISON: 06/17/2019 TECHNIQUE: Single portable radiograph of the chest FINDINGS: Mild bilateral lung emphysematous changes. Left-sided cardiac pacer. Left lung base airspace opacity likely atelectasis or infiltrate. IMPRESSION: Left lung base airspace opacities likely atelectasis or infiltrate. Follow-up to resolution. Electronically signed by: He Lomeli MD (11/03/2020 8:35 PM) [id number] DICTATED and SIGNED BY: HE LOMELI MD DATE: 11/03/[id number] 0 [] Course & Med Decision Making: Course & Med Decision Making Pertinent Labs and Imaging studies reviewed. (See chart for details) After PAT evaluation) patient will be inpatient for detox as there is no facility that is able to do a detox and treat his depression. [] Dragon Disclaimer: Dragon Disclaimer: This electronic medical record was generated, in whole or in part, using a voice recognition dictation system. Departure Departure Impression: Primary Impression: Suicidal ideations Additional Impression: Alcohol dependence Disposition: ADMITTED INPATIENT Admitting Physician: ELSA Condition: STABLE Referrals: GISELLE ROLDAN MD (PCP) Problem Qualifiers RAHEEM TORRES MD Nov 03, 2020 18:49
[2020-11-03 18:57] LABS: BASO # 0.1 x10^3/uL (0.0-0.2); BASO % 2 % (0-3); EOS # 0.1 x10^3/uL (0.0-0.7); EOS % 1 % (0-3); HEMATOCRIT 36.9 % (39.0-53.0); HEMOGLOBIN 12.9 g/dL (13.0-17.5); LYMPH # 2.3 x10^3/uL (1.0-4.8); LYMPH % 37 % (24-48); MEAN CORPUSCULAR HEMOGLOBIN 37 pg (25-35); MEAN CORPUSCULAR HGB CONC 35 g/dL (31-37); MEAN CORPUSCULAR VOLUME 104 fL (79-100); MONO # 0.6 x10^3/uL (0.0-1.1); MONO % 9 % (0-9); NEUT # 3.2 x10^3/uL (1.8-7.7); NEUT % 52 % (31-73); PLATELET COUNT 139 x10^3/uL (140-400); RED BLOOD COUNT 3.53 x10^6/uL (4.30-5.70); RED CELL DISTRIBUTION WIDTH 16.4 % (11.5-14.5); WHITE BLOOD COUNT 6.2 x10^3/uL (4.0-11.0)
[2020-11-03 19:11] LABS: CALCIUM 8.1 mg/dL (8.5-10.1); CREATININE 0.7 mg/dL (0.7-1.3); GFR 114.6; POTASSIUM 3.7 mmol/L (3.5-5.1)
[2020-11-03 19:15] LABS: ALBUMIN 2.6 g/dL (3.4-5.0); ALBUMIN/GLOBULIN RATIO 0.7 (1.0-1.7); MAGNESIUM 2.3 mg/dL (1.8-2.4); TOTAL BILIRUBIN 0.3 mg/dL (0.2-1.0); TOTAL PROTEIN 6.6 g/dL (6.4-8.2)
--- NOTE | 2020-11-03 20:37 | RAD ---
EXAM: CHEST 1 VIEW History: Chest pain COMPARISON: 06/17/2019 TECHNIQUE: Single portable radiograph of the chest FINDINGS: Mild bilateral lung emphysematous changes. Left-sided cardiac pacer. Left lung base airspa ce opacity likely atelectasis or infiltrate. IMPRESSION: Left lung base airspace opacities likely atelectasis or infiltrate. Follow-up to resolution. Electronically signed by: He Lomeli MD (11/03/2020 8:35 PM) [id number]
[2020-11-03] MEDS ORDERED: cloNIDine HCL 0.1 MG TABLET PO PRN (20:45)
[2020-11-03] MEDS ORDERED: HALOPERIDOL LACTATE 5 MG/ML VIAL. IVP PRN (20:45)
[2020-11-03] MEDS ORDERED: diphenhydrAMINE 50 MG/ML VIAL IVP PRN (20:45)
[2020-11-03] MEDS ORDERED: ONDANSETRON PF 4 MG/2 ML VIAL. IVP PRN (21:15)
[2020-11-03] MEDS ORDERED: ACETAMINOPHEN 325 MG TABLET. PO PRN (21:15)
[2020-11-03] MEDS ORDERED: MORPHINE SULFATE 2 MG/ML INJ. IVP PRN (21:15)
--- NOTE | 2020-11-03 21:27 | EKG ---
[facility] [address] [place] [address] Test Date: 2020-11-03 Test Time: 18:43:31 Pat Name: BHAVANA CRISOSTOMO Department: Room: Gender: M Daytime Babysitter: : 1960 Requested By: RAHEEM TORRES Order Number: [id number] Reading MD: Measurements Intervals [place] Rate: 91 P: 11 WA: 112 QRS: 24 QRSD: 80 T: 53 QT: 350 QTc: 438 Interpretive Statements SINUS RHYTHM QRS(T) CONTOUR ABNORMALITY CONSISTENT WITH ANTEROSEPTAL INFARCT PROBABLY OLD ABNORMAL ECG RI6.02 No previous ECG available for comparison
[2020-11-03] MEDS ORDERED: NICOTINE 21MG PATCH. TD SCH (22:00)
[2020-11-04] MEDS ORDERED: HALOPERIDOL LACTATE 5 MG/ML VIAL. IVP PRN (09:15)
[2020-11-04] MEDS ORDERED: cloNIDine HCL 0.1 MG TABLET PO PRN (09:15)
[2020-11-04 09:27] LABS: BILIRUBIN,URINE NEGATIVE (NEG); CLARITY,URINE CLEAR; COLOR,URINE YELLOW; NITRITE,URINE NEGATIVE (NEG); PH,URINE 7.5 (<5.0-8.0); PROTEIN,URINE NEGATIVE (NEG-TRACE)
[2020-11-04 09:29] LABS: BARBITURATES NEG (NEG); BENZODIAZEPINES NEG (NEG); CANNABINOIDS NEG (NEG); COCAINE NEG (NEG); METHADONE NEG (NEG); OPIATES NEG (NEG); PHENCYCLIDINE NEG (NEG)
[2020-11-04 09:31] LABS: BASO % 1 % (0-3); EOS % 1 % (0-3); HEMATOCRIT 40.6 % (39.0-53.0); HEMOGLOBIN 13.9 g/dL (13.0-17.5); LYMPH % 19 % (24-48); MEAN CORPUSCULAR HEMOGLOBIN 36 pg (25-35); MEAN CORPUSCULAR HGB CONC 34 g/dL (31-37); MEAN CORPUSCULAR VOLUME 105 fL (79-100); MONO # 0.5 x10^3/uL (0.0-1.1); MONO % 9 % (0-9); NEUT # 3.5 x10^3/uL (1.8-7.7); NEUT % 70 % (31-73); PLATELET COUNT 127 x10^3/uL (140-400); RED BLOOD COUNT 3.86 x10^6/uL (4.30-5.70); RED CELL DISTRIBUTION WIDTH 16.9 % (11.5-14.5)
[2020-11-04 09:42] LABS: BACTERIA,URINE 0 /HPF (0-FEW); RBC,URINE 0 /HPF (0-2); WBC,URINE 0 /HPF (0-4)
[2020-11-04 09:44] LABS: AMPHETAMINE/METHAMPHETAMINE NEG (NEG)
[2020-11-04 09:54] LABS: ALBUMIN 2.8 g/dL (3.4-5.0); ALBUMIN/GLOBULIN RATIO 0.7 (1.0-1.7); CALCIUM 8.4 mg/dL (8.5-10.1); CREATININE 0.6 mg/dL (0.7-1.3); TOTAL BILIRUBIN 0.6 mg/dL (0.2-1.0); TOTAL PROTEIN 6.8 g/dL (6.4-8.2)
[2020-11-04 09:55] LABS: POTASSIUM 4.2 mmol/L (3.5-5.1)
[2020-11-04] MEDS ORDERED: lamoTRIgine 100 MG TABLET. PEG SCH (11:00)
[2020-11-04] MEDS ORDERED: DULoxetine HCL 30 MG CAPSULE.DR PEG SCH (11:00)
[2020-11-04] MEDS ORDERED: LANSOPRAZOLE 30 MG TAB.RAP.DR PEG SCH (11:00)
--- NOTE | 2020-11-04 11:04 | NUR ---
Pat team bedside @ [id number]
--- NOTE | 2020-11-04 14:05 | DISCH ---
DISCHARGE INSTRUCTIONS Condition on Discharge Condition on Discharge: Stable Activity After Discharge Activity Instructions for Disc: Activity as tolerated Weight Bearing Status after Di: No restrictions Diet after Discharge Liquid Texture: Thin Liquid Checks after Discharge Checks after discharge: Check blood press - daily, Check your Temp as needed Contacting the DRNathan after DC Call your doctor for: If your condition worsens Treatment/Equipment after DC Adaptive Equipment Issued: None TESS HORTON MD Nov 04, 2020 14:05
--- NOTE | 2020-11-04 14:15 | PDOC ---
GENERAL General: Same day summary [id number] VITAL SIGNS Vital Signs/I&O: Vital Signs Date Time Temp Pulse Resp B/P (MAP) Pulse Ox O2 Delivery O2 Flow Rate FiO2 11/04/20 07:33 92 13 135/77 (96) Room Air 11/04/20 05:30 97 11/03/20 18:40 98.9 98.9 ALLERGIES Allergies: Allergies Coded Allergies Type Severity Reaction Last Updated Verified Sulfa (Sulfonamide Antibiotics) Allergy Intermediate 11/17/15 Yes haloperidol Allergy Intermediate 11/03/20 Yes MEDS Medications: Current Medications Medications (Trade) Dose Ordered Sig/Christina Route PRN Reason Start Time Stop Time Status Last Admin Dose Admin Lorazepam (Ativan) 2 mg Q6H PO 11/03/20 21:00 11/05/20 03:01 11/04/20 09:55 Duloxetine HCl (Cymbalta) 60 mg DAILY PEG 11/04/20 11:00 11/04/20 11:17 Lamotrigine (LaMICtal) 200 mg BID PEG 11/04/20 11:00 11/04/20 11:17 Lansoprazole (Prevacid) 30 mg DAILY PEG 11/04/20 11:00 11/04/20 11:17 LAB Lab: Laboratory Tests Test 11/03/20 18:50 11/03/20 19:09 11/04/20 08:47 11/04/20 09:20 White Blood Count 6.2 x10^3/uL (4.0-11.0) 5.0 x10^3/uL (4.0-11.0) Red Blood Count 3.53 x10^6/uL (4.30-5.70) L 3.86 x10^6/uL (4.30-5.70) L Hemoglobin 12.9 g/dL (13.0-17.5) L 13.9 g/dL (13.0-17.5) Hematocrit 36.9 % (39.0-53.0) L 40.6 % (39.0-53.0) Mean Corpuscular Volume 104 fL (79-100) H 105 fL (79-100) H Mean Corpuscular Hemoglobin 37 pg (25-35) H 36 pg (25-35) H Mean Corpuscular Hemoglobin Concent 35 g/dL (31-37) 34 g/dL (31-37) Red Cell Distribution Width 16.4 % (11.5-14.5) H 16.9 % (11.5-14.5) H Platelet Count 139 x10^3/uL (140-400) L 127 x10^3/uL (140-400) L Neutrophils (%) (Auto) 52 % (31-73) 70 % (31-73) Lymphocytes (%) (Auto) 37 % (24-48) 19 % (24-48) L Monocytes (%) (Auto) 9 % (0-9) 9 % (0-9) Eosinophils (%) (Auto) 1 % (0-3) 1 % (0-3) Basophils (%) (Auto) 2 % (0-3) 1 % (0-3) Neutrophils # (Auto) 3.2 x10^3/uL (1.8-7.7) 3.5 x10^3/uL (1.8-7.7) Lymphocytes # (Auto) 2.3 x10^3/uL (1.0-4.8) 1.0 x10^3/uL (1.0-4.8) Monocytes # (Auto) 0.6 x10^3/uL (0.0-1.1) 0.5 x10^3/uL (0.0-1.1) Eosinophils # (Auto) 0.1 x10^3/uL (0.0-0.7) 0.0 x10^3/uL (0.0-0.7) Basophils # (Auto) 0.1 x10^3/uL (0.0-0.2) 0.0 x10^3/uL (0.0-0.2) Sodium Level 134 mmol/L (136-145) L 139 mmol/L (136-145) Potassium Level 3.7 mmol/L (3.5-5.1) 4.2 mmol/L (3.5-5.1) Chloride Level 98 mmol/L (98-107) 104 mmol/L (98-107) Carbon Dioxide Level 26 mmol/L (21-32) 29 mmol/L (21-32) Anion Gap 10 (6-14) 6 (6-14) Blood Urea Nitrogen 8 mg/dL (8-26) 9 mg/dL (8-26) Creatinine 0.7 mg/dL (0.7-1.3) 0.6 mg/dL (0.7-1.3) L Estimated GFR (Cockcroft-Gault) 114.6 137.0 BUN/Creatinine Ratio 11 (6-20) 15 (6-20) Glucose Level 75 mg/dL (70-99) 91 mg/dL (70-99) Calcium Level 8.1 mg/dL (8.5-10.1) L 8.4 mg/dL (8.5-10.1) L Magnesium Level 2.3 mg/dL (1.8-2.4) Total Bilirubin 0.3 mg/dL (0.2-1.0) 0.6 mg/dL (0.2-1.0) Aspartate Amino Transferase (AST) 29 U/L (15-37) 25 U/L (15-37) Alanine Aminotransferase (ALT) 28 U/L (16-63) 25 U/L (16-63) Alkaline Phosphatase 76 U/L (46-116) 80 U/L (46-116) Troponin I Quantitative < 0.017 ng/mL (0.000-0.055) GT-Xhw-Z-Type Natriuretic Peptide 347 pg/mL (0-124) H Total Protein 6.6 g/dL (6.4-8.2) 6.8 g/dL (6.4-8.2) Albumin 2.6 g/dL (3.4-5.0) L 2.8 g/dL (3.4-5.0) L Albumin/Globulin Ratio 0.7 (1.0-1.7) L 0.7 (1.0-1.7) L Ethyl Alcohol Level 211 mg/dL (0-10) H SARS-CoV-2 RNA (UGO) Negative (Negative) SARS-CoV-2 Antigen (Rapid) Negative (NEGATIVE) Urine Collection Type Void Urine Color Yellow Urine Clarity Clear Urine pH 7.5 (<5.0-8.0) Urine Specific [place] 1.010 (1.000-1.030) Urine Protein Negative mg/dL (NEG-TRACE) Urine Glucose (UA) Negative mg/dL (NEG) Urine Ketones (Stick) Trace mg/dL (NEG) Urine Blood Negative (NEG) Urine Nitrite Negative (NEG) Urine Bilirubin Negative (NEG) Urine Urobilinogen Dipstick 1.0 mg/dL (0.2 mg/dL) Urine Leukocyte Esterase Negative (NEG) Urine RBC 0 /HPF (0-2) Urine WBC 0 /HPF (0-4) Urine Squamous Epithelial Cells Occ /LPF Urine Bacteria 0 /HPF (0-FEW) Urine Opiates Screen Neg (NEG) Urine Methadone Screen Neg (NEG) Urine Barbiturates Neg (NEG) Urine Phencyclidine Screen Neg (NEG) Urine Amphetamine/Methamphetamine Neg (NEG) Urine Benzodiazepines Screen Neg (NEG) Urine Cocaine Screen Neg (NEG) Urine Cannabinoids Screen Neg (NEG) Urine Ethyl Alcohol Neg (NEG) Laboratory Tests 11/03/20 18:50 11/04/20 09:20 Laboratory Tests 11/03/20 18:50 11/04/20 09:20 Justifications for Admission Other Justification TESS HORTON MD Nov 04, 2020 14:15
[2020-11-04 14:33] VITALS: BP 142/84
--- NOTE | 2020-11-04 15:14 | SSS ---
HISTORY OF PRESENT ILLNESS: This patient is a 59-year-old man who is a continuity outpatient of [facility]. He also has a primary care team, but he cannot remember where he goes at this point. He was brought in by ambulance from [facility] yesterday for assessment of alcohol intoxication and suicidal ideation. The patient spent the night holding in the Emergency Department due to lack of beds in the hospital. He has done well overnight and has been seen by the Psychiatric Assessment Team this afternoon and deemed stable for discharge back home for close outpatient followup. I am seeing the patient now nearly 24 hours after admission and he is without new complaint. He is quiet, but interactive and denies current suicidal ideation. He tells me that he lives alone and will need a cab ride home. He feels comfortable with the plan to see his Mental Health team this week. He tells me that he has been drinking for many years. His last rehab attempt was 5 years ago. He is interested in complete alcohol cessation. He does drink daily, 2-4 beers a day. He tells me that he is tired of his situation. All other systems reviewed and negative. PAST MEDICAL HISTORY: 1. Longstanding alcoholism. Last rehab attempt was 5 years ago. He is interested in full and complete cessation from alcohol. 2. History of neck surgery with swallow deficits since that time. He does need to take supplemental tube feeding through an indwelling gastrostomy tube. 3. Chronic depression and anxiety. MEDICATIONS: Please see the medication reconciliation form. SOCIAL HISTORY: The patient is single. He lives independently in his own apartment. He tells me that his brother, Román Humphrey, is his medical durable power of disability attorney. He is a full code. He does not take any tobacco or illicit drugs. FAMILY HISTORY: Reviewed in full and noncontributory to the present illness. PHYSICAL EXAMINATION: VITAL SIGNS: Reviewed since admission and are notable for that the patient has been afebrile. Blood pressure has been in the low 100s/80s. Heart rate is in the 80s-90s and regular. He is breathing comfortably and saturating normally on room air. GENERAL: He is a quiet 59-year-old man, alert and oriented x 3, in no acute distress. HEENT: Unremarkable. NECK: Soft and supple. No adenopathy or thyromegaly noted. CHEST: Bilateral equal air entry, though diminished throughout. No crackles or wheezes are noted. HEART: S1, S2 normal. Regular rate and rhythm. No murmurs or gallops are noted. ABDOMEN: Soft, nontender, nondistended. No masses or organomegaly noted. EXTREMITIES: Unremarkable for acute abnormality. LABORATORY AND OTHER STUDIES: Admission white count is 5.0, hemoglobin is 13.9, platelet count is 127. Chemistry panel is notable for normal electrolytes, normal liver function tests. Creatinine is 0.6. Drug screen is negative. Alcohol level on admission is 211. Urinalysis is clear. COVID PCR is negative. Chest x-ray is notable for atelectasis at the left lung base. ASSESSMENT AND PLAN: This is a 59-year-old man with chronic depression, anxiety and alcoholism, admitted from [facility] for assessment. He has done well overnight and has been deemed stable for discharge by the Psychiatric Assessment team. That team spoke with Dr. Black in the Emergency Department and he agreed with that discharge. I am onboard with that assessment as well. This patient was admitted to the hospitalist service and we have completed the hospital discharge. This was an observation stay as the patient was deemed stable for 1-2 night admission. He will be directed back to [facility] for more resources on alcohol rehabilitation. He needs to see his primary care team in [facility] as soon as possible. FINAL DIAGNOSES: 1. Suicidal ideation that seems to be resolved. 2. Chronic alcoholism. 3. Chronic depression and anxiety. JESSIKA CHAVES: Thuy TID: [id number]
[2020-11-05] MEDS ORDERED: NON FORMULARY ITEM (Cariprazine Hydrochloride (Vraylar) 1 CAP) PO SCH (09:00)
[2020-11-05] MEDS ORDERED: FOLIC ACID 1 MG TABLET. PO SCH (09:00)
[2020-11-05] MEDS ORDERED: THIAMINE 100 MG TABLET. PO SCH (09:00)
[2020-11-05] MEDS ORDERED: MULTIVITAMIN with MINERAL TABLET. PO SCH (09:00)
== END 2020-11-04 15:25 | disposition home or self-care (01) | DRG 897 ==
LOC: ER 18:35 → ED HOLD 22:34
PROVIDERS: ADMIT Internal Medicine; ATTEND Internal Medicine
DX: F10.229 Alcohol dependence with intoxication, unspecified (principal); R45.851 Suicidal ideations; F25.9 Schizoaffective disorder, unspecified; F32.9 Major depressive disorder, single episode, unspecified; F41.9 Anxiety disorder, unspecified; Z87.891 Personal history of nicotine dependence; Z60.2 Problems related to living alone; Z20.822 Contact with and (suspected) exposure to COVID-19
CPT/HCPCS: 36415; 71045; 80053; 80307; 81001; 83735; 83880; 84484; 85025; 87426; 93005; G0480; U0003; U0005; 99285-25